=== PATIENT | male | born 1940 | race Two or more races ===

== ENCOUNTER 2022-12-25 13:10 | Inpatient (IN) | payer OTHER ==
[~2022-12-25] VITALS: Ht 180.3 cm; Wt 104.1 kg
[2022-12-25] MEDS ORDERED: NITROGLYCERIN 0.4 MG SL TAB SL PRN (16:00)
[2022-12-25] MEDS ORDERED: ALBUTEROL SULF 2.5 MG/0.5ML(0.5%) NEB SOLN NEB PRN (16:00)
[2022-12-25] MEDS ORDERED: MORPHINE SULFATE INJ 2 MG/ml SYRG IV PRN (16:00)
[2022-12-25 20:08] VITALS: BP 129/77
[2022-12-25 20:18] VITALS: BP 129/77
[2022-12-25] MEDS ORDERED: APIX5TAB PO (20:31)
[2022-12-25] MEDS ORDERED: LEVO50TA7 PO (20:31)
[2022-12-25] MEDS ORDERED: CARV6.2551 PO (20:31)
[2022-12-25] MEDS ORDERED: METF750T54 PO (20:31)
[2022-12-25] MEDS ORDERED: SIMV-13 PO (20:31)
[2022-12-25] MEDS ORDERED: FUR20T PO (20:31)
[2022-12-25 20:48] VITALS: BP 129/77
[2022-12-25] MEDS: ATORVASTATIN 20 MG TAB PO SCH (21:33)
[2022-12-25] MEDS: APIXABAN 5 MG TAB PO SCH (21:34)
[2022-12-25] MEDS: CARVEDILOL 3.125 MG TAB PO SCH (21:35)
[2022-12-25 22:00] VITALS: BP 113/70
[2022-12-25] MEDS ORDERED: APIXABAN 5 MG TAB PO SCH (22:00)
[2022-12-26] VITALS (7 sets, daily range): BP systolic 102–119; BP diastolic 58–76
[2022-12-26] MEDS ORDERED: ACETAMINOPHEN 325 MG TAB PO PRN (02:15)
[2022-12-26] MEDS ORDERED: hydrALAZINE HCL 10 MG TAB PO PRN (02:15)
[2022-12-26] MEDS ORDERED: HYDROcodone-ACET 5/325MG TAB PO PRN (02:15)
[2022-12-26] MEDS ORDERED: ONDANSETRON HCL 4 MG/2 ML VIAL IV PRN (02:15)
[2022-12-26] MEDS: FUROSEMIDE 40 MG/4 ML VIAL IV SCH ×2 (05:12→18:01)
[2022-12-26] MEDS: CARVEDILOL 3.125 MG TAB PO SCH ×2 (09:35→21:25)
[2022-12-26] MEDS: APIXABAN 5 MG TAB PO SCH ×2 (09:35→21:25)
[2022-12-26] MEDS ORDERED: LEVOTHYROXINE SODIUM 50 MCG TAB PO SCH (10:00)
[2022-12-26] MEDS ORDERED: POTASSIUM CHL 20 Meq TABLET PO ONE (15:00)
[2022-12-26] MEDS ORDERED: TAMSULOSIN HYDROCHLORIDE 0.4 MG CAP PO ONE (15:00)
[2022-12-26] MEDS ORDERED: TAMSULOSIN HYDROCHLORIDE 0.4 MG CAP PO SCH (18:00)
[2022-12-26] MEDS: ATORVASTATIN 20 MG TAB PO SCH (21:24)
[2022-12-26] MEDS: POTASSIUM CHL 20 Meq TABLET PO SCH (21:25)
[2022-12-26] MEDS: FLUTICASONE PROP NASAL SPR 0.05 % (50MCG) 16GM EACHNOSTRI SCH (21:27)
[2022-12-27 05:00] VITALS: BP 126/81
[2022-12-27] MEDS: FUROSEMIDE 40 MG/4 ML VIAL IV SCH (06:22)
[2022-12-27 06:23] LABS: Basophils # (auto) 0 10 ^3/uL (0-0.2); Basophils % (auto) 0.8 % (0.0-2.0); Eosinophils # (auto) 0.3 10 ^3/uL (0-0.8); Eosinophils % (auto) 5.7 % (0.0-7.0); Hematocrit 36.2 % (41.0-53.0); Hemoglobin 12.5 g/dL (13.5-17.5); Lymphocytes # (auto) 1.4 10 ^3/uL (0.4-5.4); Lymphocytes % (auto) 22.2 % (10.0-50.0); Mean Corpuscular Hemoglobin 30.3 pg (28.0-32.0); Mean Corpuscular Hgb Conc. 34.5 g/dL (32.0-36.0); Mean Corpuscular Volume 87.7 fL (80.0-100.0); Monocytes # (auto) 0.7 10 ^3/uL (0-1.3); Monocytes % (auto) 12.2 % (0.0-12.0); Neutrophils # (auto) 3.6 10 ^3/uL (1.6-8.6); Neutrophils % (auto) 59.1 % (37.0-80.0); Nucleated Red Blood Cells % 0.1 %; Red Blood Cells 4.13 10^6/uL (4.5-5.90); Red Cell Distribution Width 15.4 % (11.8-14.3); White Blood Cell 6.1 10^3/uL (4.4-10.8)
[2022-12-27 06:49] LABS: Potassium 3.5 mmol/L (3.5-5.1)
[2022-12-27 06:56] LABS: BUN/Creatinine Ratio 22.4 (10.0-20.0); Calcium 9.1 mg/dL (8.5-10.1)
[2022-12-27] MEDS ORDERED: LEVOTHYROXINE SODIUM 50 MCG TAB PO SCH (07:00)
[2022-12-27 08:00] VITALS: BP 103/62
[2022-12-27] MEDS: CARVEDILOL 3.125 MG TAB PO SCH (09:22)
[2022-12-27] MEDS: POTASSIUM CHL 20 Meq TABLET PO SCH (09:24)
[2022-12-27] MEDS: APIXABAN 5 MG TAB PO SCH (09:25)
[2022-12-27] MEDS: FLUTICASONE PROP NASAL SPR 0.05 % (50MCG) 16GM EACHNOSTRI SCH (09:25)
[2022-12-27 12:00] VITALS: BP 115/74
[2022-12-27] MEDS ORDERED: FURO40TA4 PO (13:32)
[2022-12-27] MEDS ORDERED: TAM04C PO (13:32)
[2022-12-27] MEDS ORDERED: POTA8TAB15 PO (13:32)
== END 2022-12-27 15:30 | disposition home or self-care (01) | DRG 291 ==
LOC: CENTRAL 19:08 → TELE-CENTR 20:00
PROVIDERS: ADMIT Hospitalist; ATTEND Hospitalist
DX: I11.0 Hypertensive heart disease with heart failure (principal); I50.33 Acute on chronic diastolic (congestive) heart failure; E11.9 Type 2 diabetes mellitus without complications; I48.91 Unspecified atrial fibrillation; N40.0 Benign prostatic hyperplasia without lower urinary tract symptoms
CPT/HCPCS: 36415; 80048; 82565; 84132; 85025; G0378

== ENCOUNTER 2023-10-26 00:41 | Inpatient (IN) | payer OTHER ==
[2023-10-26] VITALS (11 sets, daily range): BP systolic 105–126; BP diastolic 72–76; PULSE 58–104; RESP 12–33; TEMP 98–98.1; O2SAT 90–98
[~2023-10-26] VITALS: Ht 180.3 cm; Wt 110.6 kg
[~2023-10-26 00:41] MED LIST: APIX5TAB PO; CARV6.2551 PO; FURO40TA4 PO; LEVO50TA7 PO; MAGN400T40 PO; METF750T54 PO; MULT-1018 PO; MULT-688 PO; OMEGCAP2 OR; SACU1TAB4 PO; SIMV40TA18 PO; TAMS-35 PO
[2023-10-26] MEDS ORDERED: LORazepam 2MG/ML-1ML VIAL IV ONE (00:45)
[2023-10-26] MEDS ORDERED: FUROSEMIDE 40 MG/4 ML VIAL IV ONE (00:45)
[2023-10-26] MEDS ORDERED: MAGNESIUM SULFATE 1GM/100ML 100 ML IV ONE (01:00)
[2023-10-26 01:41] LABS: Basophils # (auto) 0.1 10 ^3/uL (0-0.2); Basophils % (auto) 0.8 % (0.0-2.0); Eosinophils # (auto) 0.3 10 ^3/uL (0-0.8); Eosinophils % (auto) 3.5 % (0.0-7.0); Hematocrit 41.7 % (41.0-53.0); Hemoglobin 13.7 g/dL (13.5-17.5); Lymphocytes # (auto) 1.9 10 ^3/uL (0.4-5.4); Lymphocytes % (auto) 26.4 % (10.0-50.0); Mean Corpuscular Hemoglobin 30.4 pg (28.0-32.0); Mean Corpuscular Hgb Conc. 32.8 g/dL (32.0-36.0); Mean Corpuscular Volume 92.6 fL (80.0-100.0); Monocytes # (auto) 0.5 10 ^3/uL (0-1.3); Monocytes % (auto) 6.5 % (0.0-12.0); Neutrophils # (auto) 4.5 10 ^3/uL (1.6-8.6); Neutrophils % (auto) 62.8 % (37.0-80.0); Nucleated Red Blood Cells % 0.1 %; Red Blood Cells 4.51 10^6/uL (4.5-5.90); Red Cell Distribution Width 15.6 % (11.8-14.3); White Blood Cell 7.1 10^3/uL (4.4-10.8)
[2023-10-26] MEDS ORDERED: NOREPINEPHRINE 8 MG/250ML KIT 250 ML IV ONE (01:57)
[2023-10-26 02:00] LABS: Alanine Aminotransferase 18 U/L (7-40); Albumin 4.3 g/dL (3.2-4.8); Alkaline Phosphatase 77 U/L (46-116); Anion Gap 9 (5-15); Aspartate Aminotransferase 28 U/L (13-40); BUN/Creatinine Ratio 16.2 (10.0-20.0); Bilirubin, Total 1.1 mg/dL (0.2-1.0); Blood Urea Nitrogen 19 mg/dL (9-23); Calcium 9.4 mg/dL (8.7-10.4); Carbon Dioxide 23 mmol/L (20-30); Chloride 108 mmol/L (98-107); Glucose 253 mg/dL (74-106); Sodium 140 mmol/L (136-145); Total Protein 6.9 g/dL (5.7-8.2)
[2023-10-26] MEDS ORDERED: NOREPINEPHRINE 8 MG/250ML KIT 250 ML IV SCH (02:00)
[2023-10-26 02:30] LABS: Base Excess -1.5 mmol/L (-2.0-2.0)
[2023-10-26 03:20] LABS: Urine Bacteria NONE SEEN /hpf (None Seen); Urine Blood Negative /uL (Negative); Urine Clarity Clear (Clear); Urine Hyaline Cast FEW /lpf (0 - 2); Urine Protein, UAD Negative (Negative); Urine Specific Gravity 1.013 (1.001-1.035); Urine Urobilinogen Normal (Negative); Urine WBC 1 /hpf (0 - 3); Urine pH 5.5 (5.0-8.0)
[2023-10-26 03:25] LABS: Urine Color Straw (Yellow)
[2023-10-26] MEDS ORDERED: ACETAMINOPHEN 325 MG TAB PO PRN (04:30)
[2023-10-26] MEDS ORDERED: HYDROcodone-ACET 5/325MG TAB PO PRN (04:30)
[2023-10-26] MEDS ORDERED: MORPHINE SULFATE INJ 2 MG/ml SYRG IV PRN (04:30)
[2023-10-26] MEDS ORDERED: DEXTROSE (50%) 50ML SYRG IV PRN (04:30)
[2023-10-26] MEDS ORDERED: ONDANSETRON HCL 4 MG/2 ML VIAL IV PRN (04:30)
[2023-10-26] MEDS: ACCU-CHEK COMFORT CURVE STRIP VI SCH ×4 (06:58→21:48)
[2023-10-26] MEDS: InsuLIN REG 1unit/0.01ml Soln (100units/ml) SC SCH ×4 (06:58→21:48)
[2023-10-26 09:29] LABS: COVID19 ANTIGEN SOFIA FIA NEGATIVE (NEGATIVE)
[2023-10-26] MEDS: ENOXAPARIN SOD 40 MG/0.4 ML SYRINGE SC SCH ×2 (09:46→09:54)
[2023-10-26] MEDS: levoFLOXacin 500MG 100 ML IV SCH (09:47)
[2023-10-26] MEDS ORDERED: PANTOPRAZOLE 40 MG/10 ML VIAL INJ IV SCH (10:00)
[2023-10-26 11:30] LABS: INR 1.09 (0.9-1.15); Prothrombin Time 11.4 sec (9.3-11.8)
[2023-10-26 11:47] LABS: Triglycerides 241 mg/dL (< 150)
[2023-10-26 11:48] LABS: LDL Cholesterol 83 mg/dL (< 100)
[2023-10-26 11:49] LABS: Cholesterol 166 mg/dL (< 200); HDL Cholesterol 42 mg/dL (40-59)
[2023-10-27] VITALS (13 sets, daily range): BP systolic 106–139; BP diastolic 61–90; PULSE 62–89; RESP 12–24; TEMP 97.4–98.8; O2SAT 90–100
[2023-10-27 06:30] LABS: Basophils # (auto) 0.1 10 ^3/uL (0-0.2); Basophils % (auto) 0.7 % (0.0-2.0); Eosinophils # (auto) 0.1 10 ^3/uL (0-0.8); Hematocrit 38.5 % (41.0-53.0); Hemoglobin 12.7 g/dL (13.5-17.5); Lymphocytes # (auto) 1.7 10 ^3/uL (0.4-5.4); Lymphocytes % (auto) 22.7 % (10.0-50.0); Mean Corpuscular Hemoglobin 30.1 pg (28.0-32.0); Mean Corpuscular Hgb Conc. 33.1 g/dL (32.0-36.0); Monocytes # (auto) 0.7 10 ^3/uL (0-1.3); Monocytes % (auto) 9.2 % (0.0-12.0); Neutrophils # (auto) 4.9 10 ^3/uL (1.6-8.6); Neutrophils % (auto) 65.4 % (37.0-80.0); Nucleated Red Blood Cells % 0.4 %; Red Blood Cells 4.23 10^6/uL (4.5-5.90); Red Cell Distribution Width 15.8 % (11.8-14.3); White Blood Cell 7.5 10^3/uL (4.4-10.8)
[2023-10-27 06:33] LABS: Chloride 111 mmol/L (98-107); Potassium 3.4 mmol/L (3.5-5.1); Sodium 143 mmol/L (136-145)
[2023-10-27 06:34] LABS: Anion Gap 7 (5-15); Calcium 9.2 mg/dL (8.5-10.1); Carbon Dioxide 25 mmol/L (20-30)
[2023-10-27 06:39] LABS: BUN/Creatinine Ratio 17.8 (10.0-20.0); Blood Urea Nitrogen 19 mg/dL (9-23)
[2023-10-27 06:45] LABS: Glucose 133 mg/dL (74-106)
[2023-10-27] MEDS: InsuLIN REG 1unit/0.01ml Soln (100units/ml) SC SCH ×4 (06:50→22:00)
[2023-10-27] MEDS: ACCU-CHEK COMFORT CURVE STRIP VI SCH ×4 (06:50→22:06)
[2023-10-27] MEDS ORDERED: IODIXANOL 320MG/ML 100ML BTL IV ONE (09:32)
[2023-10-27] MEDS ORDERED: LIDOCAINE 2%HCL (LOCAL ANESTH.) INJ 20ML MDV ONE (09:32)
[2023-10-27] MEDS ORDERED: HEPARIN SODIUM (PORCINE) 5000 UNITS/ML 1ML VIAL ONE (09:41)
[2023-10-27] MEDS ORDERED: MIDAZOLAM HCL 2MG/2ML 2ml VIAL (1mg/ml) ONE (09:41)
[2023-10-27] MEDS ORDERED: fentaNYL CITRATE 100 MCG/2 ML VL ONE (09:41)
[2023-10-27] MEDS ORDERED: VERAPAMIL 2.5MG/ML INJ 2ML VIAL IV ONE (09:41)
[2023-10-27] MEDS ORDERED: ANGIOMAX 250 MG VIAL IV ONE (09:41)
[2023-10-27] MEDS ORDERED: SODIUM CHL 0.9% 50 ML ONE (09:42)
[2023-10-27] MEDS ORDERED: TICAGRELOR 90 MG TAB ONE (10:38)
[2023-10-27] MEDS ORDERED: ATROPINE SULF 1 MG/10ml SYR ONE (10:40)
[2023-10-27] MEDS ORDERED: ASPirin 81 mg TAB ONE (10:41)
[2023-10-27] MEDS: levoFLOXacin 500MG 100 ML IV SCH (12:38)
[2023-10-27] MEDS: ENOXAPARIN SOD 40 MG/0.4 ML SYRINGE SC SCH (12:38)
[2023-10-27] MEDS ORDERED: LORazepam 2MG/ML-1ML VIAL IV ONE (13:45)
[2023-10-27] MEDS: LORazepam 0.5 MG TAB PO PRN (17:00)
[2023-10-27] MEDS ORDERED: CLOPIDOGREL 300 MG TAB PO ONE (20:00)
[2023-10-27] MEDS ORDERED: TEMAZEPAM 15 MG CAP PO PRN (22:00)
[2023-10-28 05:00] VITALS: BP 99/57; PULSE 71; RESP 20; TEMP 98.9; O2SAT 95
[2023-10-28] MEDS: LORazepam 0.5 MG TAB PO PRN (05:02)
[2023-10-28] MEDS: ACCU-CHEK COMFORT CURVE STRIP VI SCH ×2 (06:20→11:30)
[2023-10-28] MEDS: InsuLIN REG 1unit/0.01ml Soln (100units/ml) SC SCH ×2 (06:21→11:30)
[2023-10-28 06:46] LABS: Chloride 110 mmol/L (98-107); Potassium 3.5 mmol/L (3.5-5.1); Sodium 142 mmol/L (136-145)
[2023-10-28 06:47] LABS: Anion Gap 9 (5-15); Calcium 9.1 mg/dL (8.5-10.1); Carbon Dioxide 23 mmol/L (20-30)
[2023-10-28 06:52] LABS: BUN/Creatinine Ratio 16.2 (10.0-20.0); Blood Urea Nitrogen 16 mg/dL (9-23); Glucose 133 mg/dL (74-106)
[2023-10-28 08:00] VITALS: PULSE 75; PULSE 77; RESP 16; O2SAT 96
[2023-10-28 09:00] VITALS: BP 113/68; PULSE 75; RESP 16; TEMP 98.3; O2SAT 96
[2023-10-28] MEDS: levoFLOXacin 500MG 100 ML IV SCH (09:50)
[2023-10-28] MEDS: ENOXAPARIN SOD 40 MG/0.4 ML SYRINGE SC SCH (09:51)
[2023-10-28] MEDS ORDERED: CLOPIDOGREL BISULFATE 75 MG TAB PO SCH (10:00)
[2023-10-28] MEDS ORDERED: ASPirin 81 mg TAB PO SCH (11:45)
[2023-10-28] MEDS ORDERED: CLOP75TA70 PO (12:22)
[2023-10-28] MEDS ORDERED: SIMV40TA18 PO (12:22)
[2023-10-28] MEDS ORDERED: ASPI81TA28 PO (12:23)
[2023-10-28 13:00] VITALS: BP 113/79; PULSE 68; RESP 16; TEMP 97.9; O2SAT 94
[2023-10-28 16:14] VITALS: BP 113/68; PULSE 75; RESP 16; TEMP 98.3; O2SAT 96
[2023-10-29] MEDS ORDERED: levoFLOXacin 500 MG TAB PO SCH (10:00)
== END 2023-10-28 16:30 | disposition home or self-care (01) | DRG 323 ==
LOC: ER 00:41 → EDBD 00:41 → TELE 04:31 → TELE-CENTR 18:31
PROVIDERS: ADMIT Nurse Practitioner Family; ATTEND Hospitalist
PROC: 5A09357 Assistance with Respiratory Ventilation, Less than 24 Consecutive Hours, Continuous Positive Airway Pressure (ICD-10-PCS; 2023-10-26)
PROC: 027034Z Dilation of Coronary Artery, One Artery with Drug-eluting Intraluminal Device, Percutaneous Approach (ICD-10-PCS; principal; 2023-10-27)
PROC: 02F03ZZ Fragmentation in Coronary Artery, One Artery, Percutaneous Approach (ICD-10-PCS; 2023-10-27)
PROC: B211YZZ Fluoroscopy of Multiple Coronary Arteries using Other Contrast (ICD-10-PCS; 2023-10-27)
PROC: B215YZZ Fluoroscopy of Left Heart using Other Contrast (ICD-10-PCS; 2023-10-27)
PROC: 4A023N7 Measurement of Cardiac Sampling and Pressure, Left Heart, Percutaneous Approach (ICD-10-PCS; 2023-10-27)
DX: I25.119 Atherosclerotic heart disease of native coronary artery with unspecified angina pectoris (principal); I50.43 Acute on chronic combined systolic (congestive) and diastolic (congestive) heart failure; J96.01 Acute respiratory failure with hypoxia; I24.9 Acute ischemic heart disease, unspecified; I11.0 Hypertensive heart disease with heart failure; Z20.822 Contact with and (suspected) exposure to COVID-19; E11.9 Type 2 diabetes mellitus without complications; E66.01 Morbid (severe) obesity due to excess calories; I25.10 Atherosclerotic heart disease of native coronary artery without angina pectoris; I95.9 Hypotension, unspecified; I48.0 Paroxysmal atrial fibrillation; Z79.01 Long term (current) use of anticoagulants; Z68.33 Body mass index [BMI] 33.0-33.9, adult; Z79.899 Other long term (current) drug therapy; Z79.84 Long term (current) use of oral hypoglycemic drugs; Z95.5 Presence of coronary angioplasty implant and graft
CPT/HCPCS: 36415; 36600; 71045; 80048; 80053; 80061; 81001; 82805; 82962; 83036; 83880; 84443; 84484; 85025; 85379; 85610; 86850; 86900; 86901; 87040; 87426; 92928; 93005; 93306; 93458; 93970; 94660; 99152; 99153; 99291; C1874; C9113; G0378; J1815; J1956; J2250; Q9967

== ENCOUNTER 2024-03-15 02:48 | Inpatient (IN) | payer OTHER ==
[~2024-03-15] VITALS: Ht 180.3 cm; Wt 104.6 kg
[~2024-03-15 02:48] MED LIST changes: -APIX5TAB PO; +ASPI81TA28 PO; +CLOP75TA70 PO; -OMEGCAP2 OR
[2024-03-15 03:06] LABS: Basophils # (auto) 0 10 ^3/uL (0-0.2); Basophils % (auto) 0.7 % (0.0-2.0); Eosinophils # (auto) 0.1 10 ^3/uL (0-0.8); Eosinophils % (auto) 2.1 % (0.0-7.0); Hematocrit 34.5 % (41.0-53.0); Hemoglobin 11.6 g/dL (13.5-17.5); Lymphocytes # (auto) 1.2 10 ^3/uL (0.4-5.4); Lymphocytes % (auto) 16.7 % (10.0-50.0); Mean Corpuscular Hemoglobin 30.1 pg (28.0-32.0); Mean Corpuscular Hgb Conc. 33.6 g/dL (32.0-36.0); Mean Corpuscular Volume 89.8 fL (80.0-100.0); Monocytes # (auto) 0.5 10 ^3/uL (0-1.3); Monocytes % (auto) 7.4 % (0.0-12.0); Neutrophils # (auto) 5.2 10 ^3/uL (1.6-8.6); Neutrophils % (auto) 73.1 % (37.0-80.0); Red Blood Cells 3.85 10^6/uL (4.5-5.90); Red Cell Distribution Width 15.9 % (11.8-14.3)
[2024-03-15 03:16] LABS: Chloride 105 mmol/L (98-107); Potassium 3.4 mmol/L (3.5-5.1); Sodium 138 mmol/L (136-145)
[2024-03-15 03:17] LABS: Anion Gap 8 (5-15); Calcium 9.7 mg/dL (8.7-10.4); Carbon Dioxide 25 mmol/L (20-30)
[2024-03-15 03:22] LABS: BUN/Creatinine Ratio 17.2 (10.0-20.0); Blood Urea Nitrogen 21 mg/dL (9-23); Glucose 189 mg/dL (74-106)
[2024-03-15 03:42] VITALS: PULSE 89; RESP 22; O2SAT 96
[2024-03-15] MEDS: FUROSEMIDE 100 MG/10ML VIAL IV ONE (03:56)
[2024-03-15] MEDS ORDERED: ONDANSETRON HCL 4 MG/2 ML VIAL IV PRN (04:15)
[2024-03-15] MEDS ORDERED: ACETAMINOPHEN 325 MG TAB PO PRN (04:15)
[2024-03-15 04:45] LABS: INR 1.19 (0.9-1.15); Prothrombin Time 12.5 sec (9.3-11.8)
[2024-03-15 04:52] LABS: Urine Bacteria None Seen /hpf (None Seen)
[2024-03-15 05:02] LABS: Urine Blood Negative /uL (Negative); Urine Clarity Clear (Clear); Urine Color Light-Yellow (Yellow); Urine Mucus FEW (None Seen); Urine Protein, UAD Negative (Negative); Urine Specific Gravity 1.008 (1.001-1.035); Urine Urobilinogen Normal (Negative); Urine WBC 1 /hpf (0 - 3)
[2024-03-15] MEDS ORDERED: NITROGLYCERIN 0.4 MG SL TAB SL PRN (05:45)
[2024-03-15] MEDS ORDERED: MORPHINE SULFATE INJ 2 MG/ml SYRG IV PRN (05:45)
[2024-03-15] MEDS: ENOXAPARIN SOD 100 MG/1 ML SYRINGE SC ONE (06:54)
[2024-03-15 08:00] VITALS: PULSE 81; RESP 25; O2SAT 94
[2024-03-15] MEDS: PANTOPRAZOLE 40 MG/10 ML VIAL INJ IV SCH (10:19)
[2024-03-15] MEDS: levoFLOXacin 500MG 100 ML IV SCH (10:19)
[2024-03-15] MEDS: FUROSEMIDE 40 MG/4 ML VIAL IV SCH (10:20)
[2024-03-15 11:30] VITALS: RESP 20
[2024-03-15 13:00] VITALS: BP 102/69; PULSE 52; RESP 17; TEMP 97.7; O2SAT 98
[2024-03-15 17:00] VITALS: BP 97/67; PULSE 72; RESP 20; TEMP 98.2; O2SAT 90
[2024-03-15] MEDS ORDERED: MID10T GT (17:38)
[2024-03-15] MEDS: MIDODRINE HCL 10 MG TAB PO SCH (17:49)
[2024-03-15] MEDS: TAMSULOSIN HYDROCHLORIDE 0.4 MG CAP PO SCH (17:50)
[2024-03-15] MEDS: POTASSIUM CHL 20 Meq TABLET PO ONE (17:50)
[2024-03-15 20:00] VITALS: PULSE 85; RESP 16
[2024-03-15] MEDS: DOXYCYCLINE 100 MG TAB/CAP PO SCH (21:53)
[2024-03-16 05:00] VITALS: BP 110/71; PULSE 64; RESP 17; TEMP 97.4; O2SAT 92
[2024-03-16] MEDS: LEVOTHYROXINE SODIUM 50 MCG TAB PO SCH (05:55)
[2024-03-16 06:58] LABS: Chloride 106 mmol/L (98-107); Potassium 3.2 mmol/L (3.5-5.1); Sodium 140 mmol/L (136-145)
[2024-03-16 06:59] LABS: Anion Gap 9 (5-15); Carbon Dioxide 25 mmol/L (20-30)
[2024-03-16 07:00] LABS: Calcium 9.6 mg/dL (8.7-10.4)
[2024-03-16 07:04] LABS: BUN/Creatinine Ratio 16.4 (10.0-20.0); Blood Urea Nitrogen 20 mg/dL (9-23); Glucose 138 mg/dL (74-106)
[2024-03-16 08:05] VITALS: PULSE 93; RESP 18
[2024-03-16] MEDS: MULTIPLE VITAMIN TAB PO SCH (08:16)
[2024-03-16] MEDS: POTASSIUM CHL 10 Meq TABLET PO SCH (08:17)
[2024-03-16] MEDS: CLOPIDOGREL BISULFATE 75 MG TAB PO SCH (08:17)
[2024-03-16] MEDS: ASPirin-EC 81 mg tab PO SCH (08:23)
[2024-03-16] MEDS: FUROSEMIDE 40 MG TAB PO SCH (08:23)
[2024-03-16 13:00] VITALS: BP 105/68; PULSE 78; RESP 18; TEMP 98; O2SAT 96
[2024-03-16 15:45] VITALS: BP 116/85
== END 2024-03-16 17:00 | disposition home or self-care (01) | DRG 291 ==
LOC: EDBD 02:48 → ER 02:48 → TELE 05:46 → TELE-CENTR 11:17
PROVIDERS: ADMIT Nurse Practitioner Family; ATTEND Nurse Practitioner Family
DX: I11.0 Hypertensive heart disease with heart failure (principal); I50.33 Acute on chronic diastolic (congestive) heart failure; J96.00 Acute respiratory failure, unspecified whether with hypoxia or hypercapnia; R42 Dizziness and giddiness; E11.9 Type 2 diabetes mellitus without complications; I25.10 Atherosclerotic heart disease of native coronary artery without angina pectoris; I48.91 Unspecified atrial fibrillation; I42.9 Cardiomyopathy, unspecified; Z88.5 Allergy status to narcotic agent; Z95.5 Presence of coronary angioplasty implant and graft; Z79.84 Long term (current) use of oral hypoglycemic drugs; I95.9 Hypotension, unspecified
CPT/HCPCS: 36415; 70450; 71045; 80048; 81001; 83880; 84484; 85025; 85610; 87081; 93005; 96372; 96374; 96375; 96376; 99291; C9113; G0378; J1956

== ENCOUNTER 2024-03-17 19:30 | Inpatient (IN) | payer OTHER ==
[~2024-03-17] VITALS: Ht 180.3 cm; Wt 100.0 kg
[~2024-03-17 19:30] MED LIST changes: -CARV6.2551 PO; +MID10T GT; -SACU1TAB4 PO
[2024-03-17 20:42] LABS: Basophils # (auto) 0.1 10 ^3/uL (0-0.2); Eosinophils # (auto) 0.3 10 ^3/uL (0-0.8); Eosinophils % (auto) 4.2 % (0.0-7.0); Hematocrit 37.1 % (41.0-53.0); Hemoglobin 12.3 g/dL (13.5-17.5); Lymphocytes # (auto) 1.4 10 ^3/uL (0.4-5.4); Lymphocytes % (auto) 20.2 % (10.0-50.0); Mean Corpuscular Hemoglobin 29.7 pg (28.0-32.0); Mean Corpuscular Hgb Conc. 33.2 g/dL (32.0-36.0); Mean Corpuscular Volume 89.5 fL (80.0-100.0); Monocytes # (auto) 0.7 10 ^3/uL (0-1.3); Monocytes % (auto) 10.5 % (0.0-12.0); Neutrophils # (auto) 4.5 10 ^3/uL (1.6-8.6); Neutrophils % (auto) 64.1 % (37.0-80.0); Nucleated Red Blood Cells % 0.3 %; Red Blood Cells 4.15 10^6/uL (4.5-5.90); Red Cell Distribution Width 15.8 % (11.8-14.3)
[2024-03-17 20:57] LABS: Alanine Aminotransferase 13 U/L (7-40); Albumin 4.2 g/dL (3.2-4.8); Alkaline Phosphatase 98 U/L (46-116); Anion Gap 9 (5-15); Aspartate Aminotransferase 16 U/L (13-40); BUN/Creatinine Ratio 21.3 (10.0-20.0); Calcium 9.6 mg/dL (8.5-10.1); Carbon Dioxide 27 mmol/L (20-30); Chloride 107 mmol/L (98-107); Glucose 123 mg/dL (74-106); Potassium 3.9 mmol/L (3.5-5.1); Sodium 143 mmol/L (136-145)
[2024-03-17 20:58] LABS: Bilirubin, Total 1.3 mg/dL (0.2-1.0); Total Protein 6.7 g/dL (5.7-8.2)
[2024-03-17 20:59] LABS: Blood Urea Nitrogen 30 mg/dL (9-23)
[2024-03-17] MEDS: FUROSEMIDE 40 MG/4 ML VIAL IV ONE (23:09)
[2024-03-18] VITALS (7 sets, daily range): BP systolic 109–119; BP diastolic 64–85; PULSE 64–82; RESP 16–21; TEMP 97.3–98.1; O2SAT 94–98
[2024-03-18] MEDS ORDERED: ACETAMINOPHEN 325 MG TAB PO PRN (00:30)
[2024-03-18] MEDS ORDERED: NITROGLYCERIN 0.4 MG SL TAB SL PRN (00:30)
[2024-03-18] MEDS ORDERED: HYDROcodone-ACET 5/325MG TAB PO PRN (00:30)
[2024-03-18] MEDS ORDERED: ONDANSETRON HCL 4 MG/2 ML VIAL IV PRN (00:30)
[2024-03-18] MEDS ORDERED: DOCUSATE SOD 100 MG CAP PO PRN (00:30)
[2024-03-18] MEDS ORDERED: MORPHINE SULFATE INJ 2 MG/ml SYRG IV PRN (00:30)
[2024-03-18 01:43] LABS: Urine Bacteria None Seen /hpf (None Seen)
[2024-03-18 01:56] LABS: Urine Blood Negative /uL (Negative); Urine Clarity Clear (Clear); Urine Color Light-Yellow (Yellow); Urine Mucus FEW (None Seen); Urine Protein, UAD Negative (Negative); Urine Urobilinogen Normal (Negative); Urine WBC <1 /hpf (0 - 3); Urine pH 6.5 (5.0-9.0)
[2024-03-18] MEDS ORDERED: MULT-688 PO (04:56)
[2024-03-18] MEDS: MIDODRINE HCL 10 MG TAB PO SCH (05:02)
[2024-03-18] MEDS: FUROSEMIDE 20 MG/2 ML VIAL IV SCH (10:38)
[2024-03-18 11:07] LABS: Basophils # (auto) 0.1 10 ^3/uL (0-0.2); Basophils % (auto) 0.8 % (0.0-2.0); Eosinophils # (auto) 0.3 10 ^3/uL (0-0.8); Eosinophils % (auto) 4.7 % (0.0-7.0); Hematocrit 37.1 % (41.0-53.0); Hemoglobin 12.1 g/dL (13.5-17.5); Lymphocytes # (auto) 1.7 10 ^3/uL (0.4-5.4); Lymphocytes % (auto) 23.4 % (10.0-50.0); Mean Corpuscular Hemoglobin 29.4 pg (28.0-32.0); Mean Corpuscular Hgb Conc. 32.6 g/dL (32.0-36.0); Mean Corpuscular Volume 90.1 fL (80.0-100.0); Monocytes # (auto) 0.7 10 ^3/uL (0-1.3); Monocytes % (auto) 9.4 % (0.0-12.0); Neutrophils # (auto) 4.5 10 ^3/uL (1.6-8.6); Neutrophils % (auto) 61.7 % (37.0-80.0); Nucleated Red Blood Cells % 0.3 %; Red Blood Cells 4.12 10^6/uL (4.5-5.90); Red Cell Distribution Width 15.9 % (11.8-14.3); White Blood Cell 7.3 10^3/uL (4.4-10.8)
[2024-03-18 11:26] LABS: Chloride 106 mmol/L (98-107); Potassium 3.6 mmol/L (3.5-5.1); Sodium 142 mmol/L (136-145)
[2024-03-18 11:27] LABS: Anion Gap 9 (5-15); Carbon Dioxide 27 mmol/L (20-30)
[2024-03-18 11:28] LABS: Calcium 9.3 mg/dL (8.5-10.1)
[2024-03-18 11:32] LABS: BUN/Creatinine Ratio 22.2 (10.0-20.0); Blood Urea Nitrogen 30 mg/dL (9-23); Glucose 147 mg/dL (74-106)
== END 2024-03-18 17:10 | disposition home health service (06) | DRG 291 ==
LOC: ER 19:30 → TELE 03-18 00:39 → TELE-EAST 03-18 04:00 → OBSVTOIN 03-18 11:12
PROVIDERS: ADMIT Nurse Practitioner Family; ATTEND Internal Medicine
DX: I13.0 Hypertensive heart and chronic kidney disease with heart failure and stage 1 through stage 4 chronic kidney disease, or unspecified chronic kidney disease (principal); I50.23 Acute on chronic systolic (congestive) heart failure; J96.21 Acute and chronic respiratory failure with hypoxia; N17.9 Acute kidney failure, unspecified; I48.20 Chronic atrial fibrillation, unspecified; I42.9 Cardiomyopathy, unspecified; D64.9 Anemia, unspecified; E03.9 Hypothyroidism, unspecified; E78.5 Hyperlipidemia, unspecified; E11.22 Type 2 diabetes mellitus with diabetic chronic kidney disease; N18.9 Chronic kidney disease, unspecified; N40.0 Benign prostatic hyperplasia without lower urinary tract symptoms; I25.10 Atherosclerotic heart disease of native coronary artery without angina pectoris; Z88.5 Allergy status to narcotic agent; Z95.5 Presence of coronary angioplasty implant and graft; Z88.8 Allergy status to other drugs, medicaments and biological substances; Z79.01 Long term (current) use of anticoagulants
CPT/HCPCS: 36415; 71045; 80048; 80053; 81001; 83880; 84484; 85025; 87081; 93005; 96374; G0378

== ENCOUNTER 2024-03-24 01:32 | Inpatient (IN) | payer OTHER ==
[~2024-03-24] VITALS: Ht 172.7 cm; Wt 100.0 kg
[~2024-03-24 01:32] MED LIST changes: -MID10T GT; +MID10T PO
[2024-03-24 02:17] LABS: Basophils # (auto) 0.1 10 ^3/uL (0-0.2); Basophils % (auto) 1.1 % (0.0-2.0); Eosinophils # (auto) 0.1 10 ^3/uL (0-0.8); Eosinophils % (auto) 1.8 % (0.0-7.0); Hematocrit 37.5 % (41.0-53.0); Lymphocytes # (auto) 1.1 10 ^3/uL (0.4-5.4); Lymphocytes % (auto) 15.9 % (10.0-50.0); Mean Corpuscular Hemoglobin 28.5 pg (28.0-32.0); Mean Corpuscular Hgb Conc. 31.9 g/dL (32.0-36.0); Mean Corpuscular Volume 89.5 fL (80.0-100.0); Monocytes # (auto) 0.6 10 ^3/uL (0-1.3); Monocytes % (auto) 8.5 % (0.0-12.0); Neutrophils # (auto) 5.1 10 ^3/uL (1.6-8.6); Neutrophils % (auto) 72.7 % (37.0-80.0); Nucleated Red Blood Cells % 0.6 %; Platelet Count (auto) 340 10^3/uL (140-450); Red Blood Cells 4.19 10^6/uL (4.5-5.90); Red Cell Distribution Width 16.7 % (11.8-14.3)
[2024-03-24 02:54] LABS: Chloride 106 mmol/L (98-107); Potassium 3.3 mmol/L (3.5-5.1); Sodium 143 mmol/L (136-145)
[2024-03-24 02:55] LABS: Anion Gap 11 (5-15); Carbon Dioxide 26 mmol/L (20-30)
[2024-03-24 02:56] LABS: Calcium 9.6 mg/dL (8.7-10.4)
[2024-03-24 03:00] LABS: BUN/Creatinine Ratio 18.2 (10.0-20.0); Blood Urea Nitrogen 27 mg/dL (9-23); Glucose 169 mg/dL (74-106)
[2024-03-24 03:16] VITALS: PULSE 86; RESP 33; O2SAT 98
[2024-03-24] MEDS: FUROSEMIDE 40 MG/4 ML VIAL IV ONE (04:41)
[2024-03-24] MEDS ORDERED: NITROGLYCERIN 0.4 MG SL TAB SL PRN (06:00)
[2024-03-24] MEDS ORDERED: ONDANSETRON HCL 4 MG/2 ML VIAL IV PRN (06:00)
[2024-03-24] MEDS ORDERED: ACETAMINOPHEN 325 MG TAB PO PRN (06:00)
[2024-03-24] MEDS ORDERED: DOCUSATE SOD 100 MG CAP PO PRN (06:00)
[2024-03-24] MEDS ORDERED: MORPHINE SULFATE INJ 2 MG/ml SYRG IV PRN ×2 (06:00→06:15)
[2024-03-24] MEDS ORDERED: DEXTROSE (50%) 50ML SYRG IV PRN (06:15)
[2024-03-24] MEDS: POTASSIUM CHL 20 Meq TABLET PO ONE (06:31)
[2024-03-24] MEDS: InsuLIN REG 1unit/0.01ml Soln (100units/ml) SC SCH (06:38)
[2024-03-24] MEDS: ACCU-CHEK COMFORT CURVE STRIP VI SCH (06:40)
[2024-03-24 07:30] VITALS: PULSE 99; RESP 19; O2SAT 6
[2024-03-24] MEDS ORDERED: FUROSEMIDE 40 MG/4 ML VIAL IV SCH (10:00)
[2024-03-24] MEDS: MIDODRINE HCL 10 MG TAB PO SCH (12:08)
[2024-03-24] MEDS: ASPirin 81 mg TAB PO SCH (12:09)
[2024-03-24] MEDS: CLOPIDOGREL BISULFATE 75 MG TAB PO SCH (12:09)
[2024-03-24] MEDS: FUROSEMIDE 40 MG TAB PO ONE (12:13)
[2024-03-24 13:06] VITALS: BP 102/76; PULSE 80; RESP 19; TEMP 97.4; O2SAT 98
== END 2024-03-25 13:27 | disposition home or self-care (01) | DRG 291 ==
LOC: EDBD 01:32 → ER 01:32 → TELE 06:07 → UNDODEPER 12:53
PROVIDERS: ADMIT Nurse Practitioner Family; ATTEND Nurse Practitioner Family
DX: I11.0 Hypertensive heart disease with heart failure (principal); I50.23 Acute on chronic systolic (congestive) heart failure; I48.20 Chronic atrial fibrillation, unspecified; I42.9 Cardiomyopathy, unspecified; I25.10 Atherosclerotic heart disease of native coronary artery without angina pectoris; E11.9 Type 2 diabetes mellitus without complications; N40.0 Benign prostatic hyperplasia without lower urinary tract symptoms; Z99.81 Dependence on supplemental oxygen; Z79.899 Other long term (current) drug therapy; Z88.8 Allergy status to other drugs, medicaments and biological substances; Z98.61 Coronary angioplasty status; Z79.01 Long term (current) use of anticoagulants
CPT/HCPCS: 36415; 71045; 80048; 82962; 83880; 84484; 85025; 93005; 96374; 99291; G0378; J1815

== ENCOUNTER 2024-03-30 13:39 | Inpatient (IN) | payer OTHER ==
[~2024-03-30] VITALS: Ht 177.8 cm; Wt 99.4 kg
[2024-03-30] MEDS: ROCURONIUM 10MG/ML 10ML VIAL IV ONE ×2 (13:57→13:58)
[2024-03-30] MEDS: MIDAZOLAM HCL 5 MG/ML-1ML VIAL ONE (13:57)
[2024-03-30] MEDS: ETOMIDATE (2MG/ML) 20ML VIAL IV ONE ×2 (13:57)
[2024-03-30] MEDS ORDERED: fentaNYL Drip 2500mCg/250mlNS 250 ML IV SCH (14:00)
[2024-03-30] MEDS ORDERED: MIDAZOLAM DRIP 50 mg/50mL 50 ML IV SCH (14:00)
[2024-03-30] MEDS: FUROSEMIDE 40 MG/4 ML VIAL IV ONE (14:00)
[2024-03-30] MEDS: MIDAZOLAM DRIP 50 mg/50mL 50 ML IV SCH ×2 (14:45→14:59)
[2024-03-30] MEDS: fentaNYL Drip 2500mCg/250mlNS 250 ML IV SCH (14:45)
[2024-03-30 15:08] LABS: Basophils # (auto) 0.1 10 ^3/uL (0-0.2); Basophils % (auto) 0.7 % (0.0-2.0); Eosinophils # (auto) 0 10 ^3/uL (0-0.8); Eosinophils % (auto) 0.3 % (0.0-7.0); Hematocrit 39.2 % (41.0-53.0); Hemoglobin 12.9 g/dL (13.5-17.5); Lymphocytes # (auto) 1.8 10 ^3/uL (0.4-5.4); Lymphocytes % (auto) 18.9 % (10.0-50.0); Mean Corpuscular Hemoglobin 29.4 pg (28.0-32.0); Mean Corpuscular Volume 89.1 fL (80.0-100.0); Monocytes # (auto) 0.7 10 ^3/uL (0-1.3); Monocytes % (auto) 6.8 % (0.0-12.0); Neutrophils % (auto) 73.3 % (37.0-80.0); Nucleated Red Blood Cells % 0.4 %; White Blood Cell 9.6 10^3/uL (4.4-10.8)
[2024-03-30] MEDS: fentaNYL Drip 2500mCg/250mlNS 250 ML IV ONE (15:13)
[2024-03-30] MEDS: MIDAZOLAM DRIP 50 mg/50mL 50 ML IV ONE (15:13)
[2024-03-30 15:26] LABS: Alanine Aminotransferase 11 U/L (7-40); Albumin 3.9 g/dL (3.2-4.8); Alkaline Phosphatase 187 U/L (46-116); Anion Gap 13 (5-15); Aspartate Aminotransferase 15 U/L (13-40); BUN/Creatinine Ratio 17.1 (10.0-20.0); Bilirubin, Total 2.4 mg/dL (0.2-1.0); Blood Urea Nitrogen 25 mg/dL (9-23); Calcium 9.8 mg/dL (8.5-10.1); Carbon Dioxide 24 mmol/L (20-30); Chloride 104 mmol/L (98-107); Glucose 157 mg/dL (74-106); Potassium 3.5 mmol/L (3.5-5.1); Sodium 141 mmol/L (136-145); Total Protein 6.3 g/dL (5.7-8.2)
[2024-03-30 15:32] VITALS: RESP 17; O2SAT 93
[2024-03-30] MEDS: dilTIAZem 125mg/125ml BAG KIT 125 ML IV ONE (17:18)
[2024-03-30] MEDS: PROPOFOL 100 ML IV SCH (17:30)
[2024-03-30] MEDS ORDERED: NITROGLYCERIN 0.4 MG SL TAB SL PRN (17:45)
[2024-03-30] MEDS ORDERED: MORPHINE SULFATE INJ 2 MG/ml SYRG IV PRN (17:45)
[2024-03-30] MEDS ORDERED: ONDANSETRON HCL 4 MG/2 ML VIAL IV PRN (17:45)
[2024-03-30] MEDS: FUROSEMIDE 40 MG/4 ML VIAL IV SCH (18:05)
[2024-03-30 18:40] VITALS: BP 118/99; PULSE 117; RESP 32; O2SAT 97
[2024-03-30] MEDS: NOREPINEPHRINE 8 MG/250ML KIT 250 ML IV ONE (19:07)
[2024-03-30] MEDS: NOREPINEPHRINE 8 MG/250ML KIT 250 ML IV SCH (19:16)
[2024-03-30 19:30] VITALS: PULSE 105; RESP 22; O2SAT 98
[2024-03-30 20:05] VITALS: BP 87/60; PULSE 97; RESP 22; O2SAT 98
[2024-03-30 20:47] LABS: Base Excess 1.3 mmol/L (-2.0-2.0)
[2024-03-30 21:15] VITALS: BP 93/67; PULSE 122; RESP 27; O2SAT 97
[2024-03-30 22:25] VITALS: BP 129/77; PULSE 117; RESP 22; O2SAT 97
[2024-03-31] VITALS (91 sets, daily range): BP systolic 69–135; BP diastolic 43–89; PULSE 71–131; RESP 16–35; TEMP 96.4–99.7; O2SAT 92–99
[2024-03-31] MEDS: dilTIAZem 125mg/125ml BAG KIT 100 ML IV ONE (03:00)
[2024-03-31] MEDS: dilTIAZem 125mg/125ml BAG KIT 125 ML IV ONE (03:13)
[2024-03-31 03:51] LABS: Basophils # (auto) 0 10 ^3/uL (0-0.2); Basophils % (auto) 0.5 % (0.0-2.0); Eosinophils # (auto) 0 10 ^3/uL (0-0.8); Eosinophils % (auto) 0.3 % (0.0-7.0); Hematocrit 36.5 % (41.0-53.0); Lymphocytes # (auto) 1.3 10 ^3/uL (0.4-5.4); Lymphocytes % (auto) 13.6 % (10.0-50.0); Mean Corpuscular Hemoglobin 29.2 pg (28.0-32.0); Mean Corpuscular Hgb Conc. 32.8 g/dL (32.0-36.0); Mean Corpuscular Volume 89.2 fL (80.0-100.0); Monocytes # (auto) 0.8 10 ^3/uL (0-1.3); Monocytes % (auto) 8.6 % (0.0-12.0); Neutrophils # (auto) 7.3 10 ^3/uL (1.6-8.6); Nucleated Red Blood Cells % 0.5 %; Red Blood Cells 4.09 10^6/uL (4.5-5.90); White Blood Cell 9.4 10^3/uL (4.4-10.8)
[2024-03-31 04:06] LABS: Alanine Aminotransferase 11 U/L (7-40); Albumin 3.4 g/dL (3.2-4.8); Alkaline Phosphatase 170 U/L (46-116); Anion Gap 10 (5-15); Aspartate Aminotransferase 21 U/L (13-40); BUN/Creatinine Ratio 18.7 (10.0-20.0); Blood Urea Nitrogen 29 mg/dL (9-23); Calcium 9.2 mg/dL (8.7-10.4); Carbon Dioxide 28 mmol/L (20-30); Chloride 106 mmol/L (98-107); Glucose 153 mg/dL (74-106); Potassium 3.1 mmol/L (3.5-5.1); Sodium 144 mmol/L (136-145)
[2024-03-31 04:07] LABS: Bilirubin, Total 1.9 mg/dL (0.2-1.0); Total Protein 5.6 g/dL (5.7-8.2)
[2024-03-31 07:14] LABS: Base Excess 2.7 mmol/L (-2.0-2.0)
[2024-03-31] MEDS ORDERED: APIX5TAB PO (07:49)
[2024-03-31] MEDS: POTASSIUM CHL 20MEQ/100ML 100 ML IV SCH (08:42)
[2024-03-31] MEDS: dilTIAZem 125mg/125ml BAG KIT 125 ML IV SCH (10:30)
[2024-03-31] MEDS: PROPOFOL 100 ML IV SCH (16:53)
[2024-04-01] VITALS (115 sets, daily range): BP systolic 87–119; BP diastolic 58–81; PULSE 84–136; RESP 11–38; TEMP 97–99; O2SAT 93–100
[2024-04-01 02:40] LABS: Alanine Aminotransferase 11 U/L (7-40); Albumin 3.4 g/dL (3.2-4.8); Alkaline Phosphatase 167 U/L (46-116); Anion Gap 10 (5-15); Aspartate Aminotransferase 21 U/L (13-40); BUN/Creatinine Ratio 16.5 (10.0-20.0); Bilirubin, Total 1.7 mg/dL (0.2-1.0); Blood Urea Nitrogen 21 mg/dL (9-23); Calcium 8.9 mg/dL (8.7-10.4); Carbon Dioxide 28 mmol/L (20-30); Chloride 108 mmol/L (98-107); Glucose 167 mg/dL (74-106); Magnesium 2.1 mg/dL (1.6-2.6); Potassium 3.1 mmol/L (3.5-5.1); Sodium 146 mmol/L (136-145); Total Protein 5.7 g/dL (5.7-8.2)
[2024-04-01 03:04] LABS: Basophils # (auto) 0.1 10 ^3/uL (0-0.2); Basophils % (auto) 0.6 % (0.0-2.0); Eosinophils # (auto) 0 10 ^3/uL (0-0.8); Eosinophils % (auto) 0.3 % (0.0-7.0); Hematocrit 38.2 % (41.0-53.0); Hemoglobin 12.2 g/dL (13.5-17.5); Lymphocytes # (auto) 1.2 10 ^3/uL (0.4-5.4); Lymphocytes % (auto) 10.5 % (10.0-50.0); Mean Corpuscular Hemoglobin 28.7 pg (28.0-32.0); Mean Corpuscular Hgb Conc. 31.9 g/dL (32.0-36.0); Mean Corpuscular Volume 89.9 fL (80.0-100.0); Monocytes # (auto) 0.9 10 ^3/uL (0-1.3); Monocytes % (auto) 8.2 % (0.0-12.0); Neutrophils # (auto) 9.2 10 ^3/uL (1.6-8.6); Neutrophils % (auto) 80.4 % (37.0-80.0); Nucleated Red Blood Cells % 0.3 %; Red Blood Cells 4.25 10^6/uL (4.5-5.90); Red Cell Distribution Width 17.3 % (11.8-14.3); White Blood Cell 11.5 10^3/uL (4.4-10.8)
[2024-04-01] MEDS: POTASSIUM CHL 20MEQ/100ML 100 ML IV SCH (03:44)
[2024-04-01 08:19] LABS: Base Excess 1.8 mmol/L (-2.0-2.0)
[2024-04-01] MEDS: Jevity 1.2 Cal/Fiber 1 Liter GT SCH (11:19)
[2024-04-01] MEDS: AMIODARONE 450mg/250ml AE 250 ML IV SCH ×2 (12:58→18:11)
[2024-04-01] MEDS ORDERED: SACU1TAB PO (14:53)
[2024-04-01] MEDS ORDERED: CARV6.2551 PO (14:53)
[2024-04-01] MEDS ORDERED: METO5TAB5 PO (14:53)
[2024-04-01] MEDS ORDERED: DULO20CA PO (14:53)
[2024-04-01] MEDS: ENOXAPARIN SOD 120 MG/0.8 ML SYRINGE SC SCH (16:51)
[2024-04-02] VITALS (109 sets, daily range): BP systolic 80–222; BP diastolic 51–142; PULSE 67–109; RESP 14–35; TEMP 99–101.7; O2SAT 89–100
[2024-04-02 08:23] LABS: Basophils # (auto) 0.1 10 ^3/uL (0-0.2); Basophils % (auto) 0.8 % (0.0-2.0); Eosinophils # (auto) 0.2 10 ^3/uL (0-0.8); Eosinophils % (auto) 1.3 % (0.0-7.0); Hemoglobin 12.8 g/dL (13.5-17.5); Lymphocytes # (auto) 1.8 10 ^3/uL (0.4-5.4); Mean Corpuscular Hgb Conc. 31.2 g/dL (32.0-36.0); Mean Corpuscular Volume 92.9 fL (80.0-100.0); Monocytes # (auto) 2.2 10 ^3/uL (0-1.3); Monocytes % (auto) 12.2 % (0.0-12.0); Neutrophils # (auto) 13.8 10 ^3/uL (1.6-8.6); Neutrophils % (auto) 75.7 % (37.0-80.0); Nucleated Red Blood Cells % 0.3 %; Red Blood Cells 4.41 10^6/uL (4.5-5.90); Red Cell Distribution Width 18.2 % (11.8-14.3); White Blood Cell 18.2 10^3/uL (4.4-10.8)
[2024-04-02 08:42] LABS: Base Excess 3.6 mmol/L (-2.0-2.0)
[2024-04-02 08:43] LABS: Albumin 3.5 g/dL (3.2-4.8); Alkaline Phosphatase 159 U/L (46-116); Anion Gap 8 (5-15); Aspartate Aminotransferase 21 U/L (13-40); BUN/Creatinine Ratio 13.7 (10.0-20.0); Blood Urea Nitrogen 16 mg/dL (9-23); Calcium 8.9 mg/dL (8.5-10.1); Carbon Dioxide 29 mmol/L (20-30); Chloride 110 mmol/L (98-107); Glucose 171 mg/dL (74-106); Magnesium 2.1 mg/dL (1.6-2.6); Potassium 3.5 mmol/L (3.5-5.1); Sodium 147 mmol/L (136-145)
[2024-04-02 08:44] LABS: Bilirubin, Total 1.3 mg/dL (0.2-1.0); Total Protein 5.7 g/dL (5.7-8.2)
[2024-04-02 08:56] LABS: Alanine Aminotransferase < 9 U/L (7-40)
[2024-04-02] MEDS: ACETAMINOPHEN 650 mg PER 20.3 mL UD GT PRN (09:47)
[2024-04-02] MEDS ORDERED: ENOXAPARIN SOD 40 MG/0.4 ML SYRINGE SC SCH (10:00)
[2024-04-02] MEDS ORDERED: VANCOMYCIN PER PHARMACY 0 MG IV SCH (12:00)
[2024-04-02] MEDS: VANCOMYCIN 1GM/200ML 200 ML IV ONE (13:23)
[2024-04-02] MEDS: PANTOPRAZOLE 40 MG/10 ML VIAL INJ IV SCH (13:35)
[2024-04-02] MEDS: MEROPENEM 1GM IVPB 50 ML IV SCH (13:35)
[2024-04-02] MEDS: ACETYLCYSTEINE 10 %(100MG/ML) SOL 4ML NEB SCH (22:17)
[2024-04-03] VITALS (105 sets, daily range): BP systolic 77–113; BP diastolic 54–76; PULSE 66–85; RESP 13–32; TEMP 98.2–101.5; O2SAT 92–100
[2024-04-03 04:25] LABS: Basophils # (auto) 0.1 10 ^3/uL (0-0.2); Basophils % (auto) 0.5 % (0.0-2.0); Eosinophils # (auto) 0.1 10 ^3/uL (0-0.8); Eosinophils % (auto) 0.7 % (0.0-7.0); Hematocrit 36.7 % (41.0-53.0); Hemoglobin 11.7 g/dL (13.5-17.5); Mean Corpuscular Volume 90.7 fL (80.0-100.0); Monocytes # (auto) 0.8 10 ^3/uL (0-1.3); Monocytes % (auto) 7.9 % (0.0-12.0); Neutrophils # (auto) 8.1 10 ^3/uL (1.6-8.6); Neutrophils % (auto) 80.9 % (37.0-80.0); Nucleated Red Blood Cells % 0.2 %; Red Blood Cells 4.05 10^6/uL (4.5-5.90); Red Cell Distribution Width 17.8 % (11.8-14.3); White Blood Cell 10.1 10^3/uL (4.4-10.8)
[2024-04-03 04:33] LABS: Albumin 3.1 g/dL (3.2-4.8); Alkaline Phosphatase 134 U/L (46-116); Anion Gap 6 (5-15); Aspartate Aminotransferase 13 U/L (13-40); BUN/Creatinine Ratio 17.2 (10.0-20.0); Blood Urea Nitrogen 22 mg/dL (9-23); Calcium 9.1 mg/dL (8.7-10.4); Carbon Dioxide 31 mmol/L (20-30); Chloride 110 mmol/L (98-107); Glucose 181 mg/dL (74-106); Potassium 3.3 mmol/L (3.5-5.1); Sodium 147 mmol/L (136-145)
[2024-04-03 04:34] LABS: Bilirubin, Total 1.1 mg/dL (0.2-1.0)
[2024-04-03 04:35] LABS: Total Protein 5.3 g/dL (5.7-8.2)
[2024-04-03 04:38] LABS: Alanine Aminotransferase < 9 U/L (7-40)
[2024-04-03] MEDS: VANCOMYCIN 1GM/200ML 200 ML IV SCH (05:00)
[2024-04-03] MEDS: ALBUTEROL SULF 2.5 MG/0.5ML(0.5%) NEB SOLN NEB SCH (06:13)
[2024-04-03 07:40] LABS: Base Excess 3.6 mmol/L (-2.0-2.0)
[2024-04-03] MEDS ORDERED: LIDOCAINE 2% JELLY 11ml (GLYDO) ONE (11:51)
[2024-04-03] MEDS ORDERED: EPINEPHrine HCL 1 MG/1 ML AMP ONE (11:51)
[2024-04-03] MEDS ORDERED: GLYCOPYRROLATE 0.2 MG/ML 1ML VIAL ONE (11:51)
[2024-04-03] MEDS ORDERED: fentaNYL CITRATE 100 MCG/2 ML VL ONE (11:52)
[2024-04-03] MEDS ORDERED: MIDAZOLAM HCL 5 MG/ML-1ML VIAL ONE (11:52)
[2024-04-03] MEDS ORDERED: FLUMAZENIL 0.1 MG/ML INJ 10ML MDV IV ONE (11:53)
[2024-04-03] MEDS: POTASSIUM EFFERVESENT TAB 25 MEQ GT ONE (15:52)
[2024-04-03] MEDS: POTASSIUM CHL 20MEQ/100ML 100 ML IV ONE (15:52)
[2024-04-04] VITALS (107 sets, daily range): BP systolic 79–171; BP diastolic 52–144; PULSE 70–86; RESP 11–33; TEMP 98.4–100.2; O2SAT 90–100
[2024-04-04 04:17] LABS: Basophils # (auto) 0 10 ^3/uL (0-0.2); Basophils % (auto) 0.4 % (0.0-2.0); Eosinophils # (auto) 0.1 10 ^3/uL (0-0.8); Eosinophils % (auto) 0.5 % (0.0-7.0); Hematocrit 37.5 % (41.0-53.0); Hemoglobin 12.1 g/dL (13.5-17.5); Lymphocytes # (auto) 1.1 10 ^3/uL (0.4-5.4); Lymphocytes % (auto) 10.1 % (10.0-50.0); Mean Corpuscular Hemoglobin 29.2 pg (28.0-32.0); Mean Corpuscular Hgb Conc. 32.3 g/dL (32.0-36.0); Mean Corpuscular Volume 90.3 fL (80.0-100.0); Monocytes # (auto) 0.7 10 ^3/uL (0-1.3); Monocytes % (auto) 6.7 % (0.0-12.0); Neutrophils # (auto) 8.7 10 ^3/uL (1.6-8.6); Neutrophils % (auto) 82.3 % (37.0-80.0); Nucleated Red Blood Cells % 0.1 %; Red Blood Cells 4.15 10^6/uL (4.5-5.90); Red Cell Distribution Width 18.5 % (11.8-14.3); White Blood Cell 10.5 10^3/uL (4.4-10.8)
[2024-04-04 04:33] LABS: Albumin 3.3 g/dL (3.2-4.8); Alkaline Phosphatase 130 U/L (46-116); Anion Gap 7 (5-15); Aspartate Aminotransferase 12 U/L (13-40); Calcium 9.2 mg/dL (8.7-10.4); Carbon Dioxide 30 mmol/L (20-30); Chloride 109 mmol/L (98-107); Glucose 167 mg/dL (74-106); Magnesium 2.1 mg/dL (1.6-2.6); Potassium 4.2 mmol/L (3.5-5.1); Sodium 146 mmol/L (136-145); Total Protein 5.7 g/dL (5.7-8.2)
[2024-04-04 04:38] LABS: Alanine Aminotransferase < 9 U/L (7-40); BUN/Creatinine Ratio 17.9 (10.0-20.0); Blood Urea Nitrogen 25 mg/dL (9-23)
[2024-04-04 08:00] LABS: Base Excess 4.1 mmol/L (-2.0-2.0)
[2024-04-04] MEDS: AMIODARONE HCL 200 MG TAB PO SCH (22:02)
[2024-04-05] VITALS (114 sets, daily range): BP systolic 83–136; BP diastolic 52–93; PULSE 71–113; RESP 10–33; TEMP 97.5–99.5; O2SAT 94–100
[2024-04-05] MEDS: DexmedeTOMIDine 4 ML IV ONE (02:01)
[2024-04-05 11:47] LABS: Basophils # (auto) 0.1 10 ^3/uL (0-0.2); Basophils % (auto) 0.9 % (0.0-2.0); Eosinophils # (auto) 0.3 10 ^3/uL (0-0.8); Eosinophils % (auto) 3.9 % (0.0-7.0); Hematocrit 38.3 % (41.0-53.0); Hemoglobin 12.4 g/dL (13.5-17.5); Lymphocytes # (auto) 1.1 10 ^3/uL (0.4-5.4); Lymphocytes % (auto) 13.5 % (10.0-50.0); Mean Corpuscular Hemoglobin 29.3 pg (28.0-32.0); Mean Corpuscular Hgb Conc. 32.4 g/dL (32.0-36.0); Mean Corpuscular Volume 90.4 fL (80.0-100.0); Monocytes # (auto) 0.7 10 ^3/uL (0-1.3); Monocytes % (auto) 8.4 % (0.0-12.0); Neutrophils % (auto) 73.3 % (37.0-80.0); Nucleated Red Blood Cells % 0.4 %; Red Blood Cells 4.24 10^6/uL (4.5-5.90); Red Cell Distribution Width 18.3 % (11.8-14.3); White Blood Cell 8.2 10^3/uL (4.4-10.8)
[2024-04-05 12:28] LABS: Albumin 3.2 g/dL (3.2-4.8); Alkaline Phosphatase 113 U/L (46-116); Anion Gap 12 (5-15); Aspartate Aminotransferase 28 U/L (13-40); BUN/Creatinine Ratio 23.3 (10.0-20.0); Blood Urea Nitrogen 27 mg/dL (9-23); Calcium 9.3 mg/dL (8.7-10.4); Carbon Dioxide 26 mmol/L (20-30); Chloride 110 mmol/L (98-107); Glucose 122 mg/dL (74-106); Magnesium 2.1 mg/dL (1.6-2.6); Potassium 3.8 mmol/L (3.5-5.1); Sodium 148 mmol/L (136-145)
[2024-04-05 12:29] LABS: Bilirubin, Total 0.9 mg/dL (0.2-1.0); Total Protein 5.7 g/dL (5.7-8.2)
[2024-04-05 12:30] LABS: Alanine Aminotransferase < 9 U/L (7-40)
[2024-04-05] MEDS: NOREPINEPHRINE 8 MG/250ML KIT 250 ML IV SCH (17:42)
[2024-04-06] VITALS (108 sets, daily range): BP systolic 78–145; BP diastolic 50–100; PULSE 71–143; RESP 13–47; TEMP 97.2–100.9; O2SAT 83–100
[2024-04-06 04:22] LABS: Basophils # (auto) 0.1 10 ^3/uL (0-0.2); Basophils % (auto) 0.7 % (0.0-2.0); Eosinophils # (auto) 0.3 10 ^3/uL (0-0.8); Eosinophils % (auto) 4.5 % (0.0-7.0); Hematocrit 38.8 % (41.0-53.0); Hemoglobin 12.4 g/dL (13.5-17.5); Lymphocytes # (auto) 1.1 10 ^3/uL (0.4-5.4); Lymphocytes % (auto) 16.2 % (10.0-50.0); Mean Corpuscular Hemoglobin 28.7 pg (28.0-32.0); Mean Corpuscular Volume 89.5 fL (80.0-100.0); Monocytes # (auto) 0.7 10 ^3/uL (0-1.3); Monocytes % (auto) 9.5 % (0.0-12.0); Neutrophils # (auto) 4.7 10 ^3/uL (1.6-8.6); Neutrophils % (auto) 69.1 % (37.0-80.0); Nucleated Red Blood Cells % 0.2 %; Red Blood Cells 4.34 10^6/uL (4.5-5.90); Red Cell Distribution Width 17.7 % (11.8-14.3); White Blood Cell 6.9 10^3/uL (4.4-10.8)
[2024-04-06 04:48] LABS: Albumin 3.2 g/dL (3.2-4.8); Alkaline Phosphatase 105 U/L (46-116); Anion Gap 15 (5-15); Aspartate Aminotransferase 13 U/L (13-40); BUN/Creatinine Ratio 24.5 (10.0-20.0); Blood Urea Nitrogen 27 mg/dL (9-23); Calcium 9.5 mg/dL (8.7-10.4); Carbon Dioxide 25 mmol/L (20-30); Chloride 111 mmol/L (98-107); Glucose 121 mg/dL (74-106); Sodium 151 mmol/L (136-145)
[2024-04-06 04:49] LABS: Bilirubin, Total 0.9 mg/dL (0.2-1.0); Total Protein 5.7 g/dL (5.7-8.2)
[2024-04-06 04:54] LABS: Alanine Aminotransferase < 9 U/L (7-40)
[2024-04-06] MEDS: POTASSIUM EFFERVESENT TAB 25 MEQ GT ONE (06:10)
[2024-04-06 08:58] LABS: Base Excess 5.2 mmol/L (-2.0-2.0)
[2024-04-06 17:30] LABS: Base Excess 5.7 mmol/L (-2.0-2.0)
[2024-04-06] MEDS: FUROSEMIDE 20 MG/2 ML VIAL IV ONE (21:27)
[2024-04-06] MEDS: POTASSIUM CHL 20MEQ/100ML 100 ML IV ONE ×2 (21:27→21:28)
[2024-04-06] MEDS: FUROSEMIDE 20 MG/2 ML VIAL ONE (21:27)
[2024-04-06 22:08] LABS: Base Excess 5.3 mmol/L (-2.0-2.0)
[2024-04-06] MEDS: ETOMIDATE (2MG/ML) 20ML VIAL IV ONE (22:36)
[2024-04-06] MEDS: SUCCINYLCHOLINE CHLORIDE 20 MG/ML 10ML VIAL IV ONE (22:37)
[2024-04-06] MEDS: MIDODRINE HCL 10 MG TAB PO SCH (22:56)
[2024-04-07] VITALS (108 sets, daily range): BP systolic 87–124; BP diastolic 50–82; PULSE 80–108; RESP 12–30; TEMP 98.1–100.6; O2SAT 93–100
[2024-04-07 00:50] LABS: Base Excess 2.5 mmol/L (-2.0-2.0)
[2024-04-07 04:22] LABS: Basophils # (auto) 0 10 ^3/uL (0-0.2); Basophils % (auto) 0.4 % (0.0-2.0); Eosinophils # (auto) 0.1 10 ^3/uL (0-0.8); Hematocrit 40.4 % (41.0-53.0); Hemoglobin 12.8 g/dL (13.5-17.5); Lymphocytes # (auto) 0.9 10 ^3/uL (0.4-5.4); Lymphocytes % (auto) 8.8 % (10.0-50.0); Mean Corpuscular Hemoglobin 28.6 pg (28.0-32.0); Mean Corpuscular Hgb Conc. 31.8 g/dL (32.0-36.0); Mean Corpuscular Volume 89.9 fL (80.0-100.0); Monocytes # (auto) 0.9 10 ^3/uL (0-1.3); Monocytes % (auto) 8.6 % (0.0-12.0); Neutrophils # (auto) 8.4 10 ^3/uL (1.6-8.6); Neutrophils % (auto) 81.2 % (37.0-80.0); Nucleated Red Blood Cells % 0.2 %; Red Blood Cells 4.49 10^6/uL (4.5-5.90); Red Cell Distribution Width 17.9 % (11.8-14.3); White Blood Cell 10.3 10^3/uL (4.4-10.8)
[2024-04-07 04:42] LABS: Albumin 3.2 g/dL (3.2-4.8); Alkaline Phosphatase 103 U/L (46-116); Anion Gap 10 (5-15); Aspartate Aminotransferase 16 U/L (13-40); Blood Urea Nitrogen 32 mg/dL (9-23); Calcium 9.6 mg/dL (8.7-10.4); Carbon Dioxide 30 mmol/L (20-30); Chloride 112 mmol/L (98-107); Glucose 138 mg/dL (74-106); Potassium 3.6 mmol/L (3.5-5.1); Sodium 152 mmol/L (136-145); Total Protein 5.8 g/dL (5.7-8.2)
[2024-04-07 04:43] LABS: Alanine Aminotransferase < 9 U/L (7-40)
[2024-04-07 07:35] LABS: Base Excess 4.8 mmol/L (-2.0-2.0)
[2024-04-07] MEDS: VANCOMYCIN 1GM/200ML 200 ML IV SCH (10:19)
[2024-04-08] VITALS (108 sets, daily range): BP systolic 82–206; BP diastolic 49–176; PULSE 84–120; RESP 12–19; TEMP 96.6–98.6; O2SAT 93–100
[2024-04-08 04:08] LABS: Basophils # (auto) 0.1 10 ^3/uL (0-0.2); Basophils % (auto) 1.4 % (0.0-2.0); Eosinophils # (auto) 0.3 10 ^3/uL (0-0.8); Eosinophils % (auto) 4.9 % (0.0-7.0); Hematocrit 37.3 % (41.0-53.0); Hemoglobin 12.2 g/dL (13.5-17.5); Lymphocytes # (auto) 1.1 10 ^3/uL (0.4-5.4); Lymphocytes % (auto) 16.1 % (10.0-50.0); Mean Corpuscular Hemoglobin 29.3 pg (28.0-32.0); Mean Corpuscular Hgb Conc. 32.6 g/dL (32.0-36.0); Mean Corpuscular Volume 89.9 fL (80.0-100.0); Monocytes # (auto) 0.6 10 ^3/uL (0-1.3); Monocytes % (auto) 9.3 % (0.0-12.0); Neutrophils # (auto) 4.7 10 ^3/uL (1.6-8.6); Neutrophils % (auto) 68.3 % (37.0-80.0); Nucleated Red Blood Cells % 0.2 %; Red Blood Cells 4.15 10^6/uL (4.5-5.90); Red Cell Distribution Width 18.1 % (11.8-14.3); White Blood Cell 6.9 10^3/uL (4.4-10.8)
[2024-04-08 04:17] LABS: Albumin 3.2 g/dL (3.2-4.8); Alkaline Phosphatase 96 U/L (46-116); Anion Gap 7 (5-15); Aspartate Aminotransferase 16 U/L (13-40); BUN/Creatinine Ratio 28.4 (10.0-20.0); Blood Urea Nitrogen 33 mg/dL (9-23); Calcium 9.5 mg/dL (8.5-10.1); Carbon Dioxide 32 mmol/L (20-30); Chloride 115 mmol/L (98-107); Glucose 146 mg/dL (74-106); Magnesium 2.2 mg/dL (1.6-2.6); Potassium 3.3 mmol/L (3.5-5.1); Sodium 154 mmol/L (136-145); Total Protein 5.6 g/dL (5.7-8.2)
[2024-04-08 04:36] LABS: Alanine Aminotransferase < 9 U/L (7-40)
[2024-04-08] MEDS: POTASSIUM EFFERVESENT TAB 25 MEQ GT ONE (05:48)
[2024-04-08] MEDS: fentaNYL Drip 2500mCg/250mlNS 250 ML IV SCH (20:45)
[2024-04-09] VITALS (102 sets, daily range): BP systolic 74–143; BP diastolic 50–96; PULSE 74–120; RESP 12–28; TEMP 97.5–100.2; O2SAT 91–100
[2024-04-09 04:29] LABS: Basophils # (auto) 0 10 ^3/uL (0-0.2); Basophils % (auto) 0.7 % (0.0-2.0); Eosinophils # (auto) 0.3 10 ^3/uL (0-0.8); Eosinophils % (auto) 4.9 % (0.0-7.0); Hematocrit 36.3 % (41.0-53.0); Hemoglobin 11.4 g/dL (13.5-17.5); Lymphocytes # (auto) 0.8 10 ^3/uL (0.4-5.4); Lymphocytes % (auto) 12.5 % (10.0-50.0); Mean Corpuscular Hemoglobin 28.5 pg (28.0-32.0); Mean Corpuscular Hgb Conc. 31.5 g/dL (32.0-36.0); Mean Corpuscular Volume 90.5 fL (80.0-100.0); Monocytes # (auto) 0.5 10 ^3/uL (0-1.3); Monocytes % (auto) 7.7 % (0.0-12.0); Neutrophils # (auto) 4.6 10 ^3/uL (1.6-8.6); Neutrophils % (auto) 74.2 % (37.0-80.0); Red Blood Cells 4.01 10^6/uL (4.5-5.90); Red Cell Distribution Width 18.3 % (11.8-14.3); White Blood Cell 6.2 10^3/uL (4.4-10.8)
[2024-04-09 04:42] LABS: Alkaline Phosphatase 86 U/L (46-116); Anion Gap 6 (5-15); Aspartate Aminotransferase 16 U/L (13-40); BUN/Creatinine Ratio 27.8 (10.0-20.0); Blood Urea Nitrogen 32 mg/dL (9-23); Calcium 9.2 mg/dL (8.5-10.1); Carbon Dioxide 32 mmol/L (20-30); Chloride 116 mmol/L (98-107); Glucose 129 mg/dL (74-106); Potassium 3.3 mmol/L (3.5-5.1); Sodium 154 mmol/L (136-145)
[2024-04-09 04:43] LABS: Total Protein 5.3 g/dL (5.7-8.2)
[2024-04-09 04:44] LABS: Alanine Aminotransferase < 9 U/L (7-40)
[2024-04-09 09:58] LABS: Base Excess 7.3 mmol/L (-2.0-2.0)
[2024-04-09] MEDS: POTASSIUM CHL 20MEQ/100ML 100 ML IV ONE (10:39)
[2024-04-10] VITALS (106 sets, daily range): BP systolic 99–167; BP diastolic 62–130; PULSE 79–121; RESP 8–31; TEMP 98.6–100.6; O2SAT 94–98
[2024-04-10 03:59] LABS: Basophils # (auto) 0.1 10 ^3/uL (0-0.2); Basophils % (auto) 1.1 % (0.0-2.0); Eosinophils # (auto) 0.1 10 ^3/uL (0-0.8); Hematocrit 41.6 % (41.0-53.0); Hemoglobin 13.4 g/dL (13.5-17.5); Lymphocytes # (auto) 1.3 10 ^3/uL (0.4-5.4); Lymphocytes % (auto) 13.8 % (10.0-50.0); Mean Corpuscular Hemoglobin 28.7 pg (28.0-32.0); Mean Corpuscular Hgb Conc. 32.1 g/dL (32.0-36.0); Mean Corpuscular Volume 89.5 fL (80.0-100.0); Monocytes # (auto) 0.6 10 ^3/uL (0-1.3); Monocytes % (auto) 6.6 % (0.0-12.0); Neutrophils # (auto) 7.1 10 ^3/uL (1.6-8.6); Neutrophils % (auto) 77.5 % (37.0-80.0); Nucleated Red Blood Cells % 0.3 %; Red Blood Cells 4.65 10^6/uL (4.5-5.90); Red Cell Distribution Width 18.8 % (11.8-14.3); White Blood Cell 9.2 10^3/uL (4.4-10.8)
[2024-04-10] MEDS: POTASSIUM CHL 20MEQ/100ML 100 ML IV ONE ×2 (05:35→05:36)
[2024-04-10] MEDS: FUROSEMIDE 40 MG/4 ML VIAL IV SCH (13:00)
[2024-04-10] MEDS: FREE WATER GT SCH (14:00)
[2024-04-11] VITALS (60 sets, daily range): BP systolic 88–129; BP diastolic 62–93; PULSE 83–127; RESP 9–34; TEMP 99–99.9; O2SAT 94–100
[2024-04-11 03:44] LABS: Alanine Aminotransferase 18 U/L (7-40); Alkaline Phosphatase 101 U/L (46-116); Anion Gap 15 (5-15); Aspartate Aminotransferase 41 U/L (13-40); BUN/Creatinine Ratio 25.9 (10.0-20.0); Calcium 10.1 mg/dL (8.7-10.4); Carbon Dioxide 26 mmol/L (20-30); Chloride 113 mmol/L (98-107); Glucose 136 mg/dL (74-106); Potassium 3.8 mmol/L (3.5-5.1); Sodium 154 mmol/L (136-145)
[2024-04-11 03:45] LABS: Albumin 3.4 g/dL (3.2-4.8); Bilirubin, Total 1.5 mg/dL (0.2-1.0)
[2024-04-11 03:53] LABS: Blood Urea Nitrogen 51 mg/dL (9-23)
[2024-04-11 09:18] LABS: Basophils # (auto) 0.1 10 ^3/uL (0-0.2); Basophils % (auto) 1.1 % (0.0-2.0); Eosinophils # (auto) 0.1 10 ^3/uL (0-0.8); Eosinophils % (auto) 0.7 % (0.0-7.0); Hematocrit 43.7 % (41.0-53.0); Hemoglobin 13.6 g/dL (13.5-17.5); Lymphocytes # (auto) 1.1 10 ^3/uL (0.4-5.4); Lymphocytes % (auto) 13.9 % (10.0-50.0); Mean Corpuscular Hemoglobin 28.5 pg (28.0-32.0); Mean Corpuscular Hgb Conc. 31.2 g/dL (32.0-36.0); Mean Corpuscular Volume 91.4 fL (80.0-100.0); Monocytes # (auto) 0.5 10 ^3/uL (0-1.3); Monocytes % (auto) 6.4 % (0.0-12.0); Neutrophils # (auto) 6.3 10 ^3/uL (1.6-8.6); Neutrophils % (auto) 77.9 % (37.0-80.0); Nucleated Red Blood Cells % 0.9 %; Red Blood Cells 4.78 10^6/uL (4.5-5.90); Red Cell Distribution Width 19.7 % (11.8-14.3); White Blood Cell 8.1 10^3/uL (4.4-10.8)
[2024-04-11] MEDS: VANCOMYCIN 1GM/200ML 200 ML IV ONE (10:00)
[2024-04-11] MEDS: PROPOFOL 100 ML IV ONE (23:26)
[2024-04-12] VITALS (99 sets, daily range): BP systolic 78–123; BP diastolic 47–91; PULSE 85–126; RESP 13–49; TEMP 97.7–99.5; O2SAT 93–100
[2024-04-12] MEDS: PROPOFOL 100 ML IV SCH (00:05)
[2024-04-12 07:43] LABS: Base Excess 2.3 mmol/L (-2.0-2.0)
[2024-04-12 10:11] LABS: Alanine Aminotransferase 14 U/L (7-40); Albumin 3.1 g/dL (3.2-4.8); Alkaline Phosphatase 78 U/L (46-116); Anion Gap 12 (5-15); Aspartate Aminotransferase 32 U/L (13-40); BUN/Creatinine Ratio 28.7 (10.0-20.0); Bilirubin, Total 1.2 mg/dL (0.2-1.0); Blood Urea Nitrogen 52 mg/dL (9-23); Calcium 9.3 mg/dL (8.7-10.4); Carbon Dioxide 28 mmol/L (20-30); Chloride 114 mmol/L (98-107); Glucose 104 mg/dL (74-106); Potassium 3.4 mmol/L (3.5-5.1); Sodium 154 mmol/L (136-145); Total Protein 5.4 g/dL (5.7-8.2)
[2024-04-12 11:13] LABS: Basophils # (auto) 0.1 10 ^3/uL (0-0.2); Basophils % (auto) 0.8 % (0.0-2.0); Eosinophils # (auto) 0.1 10 ^3/uL (0-0.8); Eosinophils % (auto) 1.2 % (0.0-7.0); Hemoglobin 11.8 g/dL (13.5-17.5); Lymphocytes # (auto) 0.8 10 ^3/uL (0.4-5.4); Lymphocytes % (auto) 10.2 % (10.0-50.0); Mean Corpuscular Hemoglobin 28.4 pg (28.0-32.0); Mean Corpuscular Hgb Conc. 31.2 g/dL (32.0-36.0); Monocytes # (auto) 0.5 10 ^3/uL (0-1.3); Monocytes % (auto) 6.2 % (0.0-12.0); Neutrophils # (auto) 6.6 10 ^3/uL (1.6-8.6); Neutrophils % (auto) 81.6 % (37.0-80.0); Nucleated Red Blood Cells % 0.5 %; Red Blood Cells 4.18 10^6/uL (4.5-5.90); Red Cell Distribution Width 19.1 % (11.8-14.3); White Blood Cell 8.1 10^3/uL (4.4-10.8)
[2024-04-12] MEDS: POTASSIUM CHL 20MEQ/100ML 100 ML IV ONE (12:23)
[2024-04-12] MEDS: MEROPENEM 1GM IVPB 50 ML IV SCH (14:08)
[2024-04-12 14:22] LABS: Base Excess 3.6 mmol/L (-2.0-2.0)
[2024-04-12] MEDS: LORazepam 2MG/ML-1ML VIAL ONE (16:18)
[2024-04-12] MEDS: LORazepam 2MG/ML-1ML VIAL IV ONE (16:36)
[2024-04-12] MEDS: FREE WATER GT SCH (20:30)
[2024-04-13] VITALS (105 sets, daily range): BP systolic 89–130; BP diastolic 59–88; PULSE 85–135; RESP 15–47; TEMP 97.5–99; O2SAT 92–99
[2024-04-13 04:07] LABS: Basophils # (auto) 0.1 10 ^3/uL (0-0.2); Basophils % (auto) 0.8 % (0.0-2.0); Eosinophils # (auto) 0.1 10 ^3/uL (0-0.8); Eosinophils % (auto) 1.4 % (0.0-7.0); Hematocrit 37.5 % (41.0-53.0); Hemoglobin 12.2 g/dL (13.5-17.5); Lymphocytes # (auto) 1.1 10 ^3/uL (0.4-5.4); Mean Corpuscular Hemoglobin 28.8 pg (28.0-32.0); Mean Corpuscular Hgb Conc. 32.5 g/dL (32.0-36.0); Mean Corpuscular Volume 88.8 fL (80.0-100.0); Monocytes # (auto) 0.5 10 ^3/uL (0-1.3); Monocytes % (auto) 6.9 % (0.0-12.0); Neutrophils # (auto) 5.9 10 ^3/uL (1.6-8.6); Neutrophils % (auto) 76.9 % (37.0-80.0); Red Blood Cells 4.23 10^6/uL (4.5-5.90); Red Cell Distribution Width 18.6 % (11.8-14.3); White Blood Cell 7.7 10^3/uL (4.4-10.8)
[2024-04-13 04:27] LABS: Alanine Aminotransferase 16 U/L (7-40); Albumin 3.2 g/dL (3.2-4.8); Alkaline Phosphatase 84 U/L (46-116); Anion Gap 14 (5-15); Aspartate Aminotransferase 30 U/L (13-40); BUN/Creatinine Ratio 25.7 (10.0-20.0); Bilirubin, Total 1.6 mg/dL (0.2-1.0); Blood Urea Nitrogen 49 mg/dL (9-23); Calcium 9.8 mg/dL (8.7-10.4); Carbon Dioxide 27 mmol/L (20-30); Chloride 113 mmol/L (98-107); Glucose 118 mg/dL (74-106); Potassium 3.3 mmol/L (3.5-5.1); Sodium 154 mmol/L (136-145)
[2024-04-13 04:28] LABS: Total Protein 5.9 g/dL (5.7-8.2)
[2024-04-13] MEDS: LORazepam 2MG/ML-1ML VIAL IV PRN (05:13)
[2024-04-13 07:58] LABS: Base Excess 3.5 mmol/L (-2.0-2.0)
[2024-04-13 09:36] LABS: Protein, Urine 109.1 mg/dL (0.0-11.9)
[2024-04-13 09:40] LABS: Creatinine, Urine 145.08 mg/dL (30.0-125.0)
[2024-04-13] MEDS: VANCOMYCIN 500 MG in D5W 5% 100 ML IV ONE (10:00)
[2024-04-13] MEDS: D5W 5% 1,000 ML IV SCH (13:06)
[2024-04-13] MEDS: POTASSIUM CHL 20MEQ/100ML 100 ML IV SCH (13:08)
[2024-04-13] MEDS: DOBUTamine 1000MCG/ML 250 ML IV ONE (13:16)
[2024-04-13] MEDS: DOBUTamine 1000MCG/ML 250 ML IV SCH (13:16)
[2024-04-13] MEDS: LORazepam 2MG/ML-1ML VIAL IV ONE (15:24)
[2024-04-13] MEDS: LORazepam 2MG/ML-1ML VIAL ONE (15:27)
[2024-04-13] MEDS ORDERED: TPN PER PHARMACY 0 ML IV SCH (17:00)
[2024-04-13] MEDS ORDERED: DEXTROSE (50%) 50ML SYRG IV SCH (17:45)
[2024-04-13] MEDS: InsuLIN REG 1unit/0.01ml Soln (100units/ml) SC SCH (18:00)
[2024-04-13] MEDS: ACCU-CHEK COMFORT CURVE STRIP VI SCH (18:00)
[2024-04-13] MEDS ORDERED: MILRINONE 20MG/100ML 100 ML IV SCH (18:15)
[2024-04-13 18:35] LABS: Magnesium 2.4 mg/dL (1.6-2.6)
[2024-04-13] MEDS: MILRINONE 20MG/100ML 100 ML IV SCH (18:48)
[2024-04-13] MEDS: AMINO ACID INFUSION IN D10W 1,000 ML IV ONE (20:36)
[2024-04-13] MEDS: DIGOXIN (250MCG/ML) 2 ML AMPULE IV ONE (20:36)
[2024-04-13] MEDS: methylPREDNISolone SOD SUCC 125 MG/2 ML VL IV SCH (22:15)
[2024-04-14] VITALS (100 sets, daily range): BP systolic 85–163; BP diastolic 39–128; PULSE 100–138; RESP 15–45; TEMP 97.5–98.6; O2SAT 92–99
[2024-04-14 04:56] LABS: Basophils # (auto) 0 10 ^3/uL (0-0.2); Basophils % (auto) 0.2 % (0.0-2.0); Eosinophils # (auto) 0 10 ^3/uL (0-0.8); Eosinophils % (auto) 0.4 % (0.0-7.0); Hematocrit 33.7 % (41.0-53.0); Hemoglobin 10.9 g/dL (13.5-17.5); Lymphocytes # (auto) 0.2 10 ^3/uL (0.4-5.4); Lymphocytes % (auto) 3.5 % (10.0-50.0); Mean Corpuscular Hemoglobin 29.2 pg (28.0-32.0); Mean Corpuscular Hgb Conc. 32.5 g/dL (32.0-36.0); Monocytes # (auto) 0.1 10 ^3/uL (0-1.3); Neutrophils # (auto) 6.3 10 ^3/uL (1.6-8.6); Neutrophils % (auto) 93.9 % (37.0-80.0); Nucleated Red Blood Cells % 0.2 %; Red Blood Cells 3.75 10^6/uL (4.5-5.90); Red Cell Distribution Width 19.2 % (11.8-14.3); White Blood Cell 6.8 10^3/uL (4.4-10.8)
[2024-04-14 04:59] LABS: Alanine Aminotransferase 14 U/L (7-40); Albumin 3.1 g/dL (3.2-4.8); Alkaline Phosphatase 74 U/L (46-116); Anion Gap 9 (5-15); Aspartate Aminotransferase 26 U/L (13-40); BUN/Creatinine Ratio 30.4 (10.0-20.0); Blood Urea Nitrogen 45 mg/dL (9-23); Calcium 8.9 mg/dL (8.7-10.4); Carbon Dioxide 28 mmol/L (20-30); Chloride 112 mmol/L (98-107); Magnesium 2.1 mg/dL (1.6-2.6); Potassium 3.3 mmol/L (3.5-5.1)
[2024-04-14 05:00] LABS: Bilirubin, Total 1.8 mg/dL (0.2-1.0); Phosphorus 2.1 mg/dL (2.4-5.1); Total Protein 5.5 g/dL (5.7-8.2)
[2024-04-14 05:05] LABS: Glucose 244 mg/dL (74-106); Sodium 149 mmol/L (136-145)
[2024-04-14 05:15] LABS: Triglycerides 156 mg/dL (< 150)
[2024-04-14 09:17] LABS: Hematocrit 34.2 % (41.0-53.0); Mean Corpuscular Hemoglobin 28.8 pg (28.0-32.0); Mean Corpuscular Hgb Conc. 32.2 g/dL (32.0-36.0); Mean Corpuscular Volume 89.4 fL (80.0-100.0); Red Blood Cells 3.82 10^6/uL (4.5-5.90); White Blood Cell 5.7 10^3/uL (4.4-10.8)
[2024-04-14] MEDS: BUMETANIDE 2.5mg/10ml (0.25 mg/ml) INJ IV ONE (09:29)
[2024-04-14] MEDS: DIGOXIN (250MCG/ML) 2 ML AMPULE IV ONE (09:30)
[2024-04-14 09:35] LABS: Band Neutrophils % (manual) 0; Basophils % (manual) 0 (0.0-2.0); Blast Cells 0; Eosinophils % (manual) 0 (0-7); Metamyelocytes % 0; Myelocytes % 0; Promyelocytes % 0; Reactive Lymphocytes 0
[2024-04-14 09:41] LABS: INR 1.41 (0.9-1.15); Partial Thromboplastin Time 28.6 SEC (24.5-34.5); Prothrombin Time 14.6 sec (9.3-11.8)
[2024-04-14] MEDS: HEPARIN DRIP/D5W 100UNITS/ML 250 ML IV SCH ×2 (09:48→18:53)
[2024-04-14] MEDS: HEPARIN SODIUM (PORCINE) 5000 UNITS/ML 1ML VIAL IV ONE ×2 (09:50→18:57)
[2024-04-14] MEDS: ASPirin 81 mg TAB PO SCH (09:55)
[2024-04-14 10:02] LABS: Lymphocytes % (manual) 3 (10.0-50.0); Monocytes % (manual) 2 (0-12); Platelet Estimate Adequate
[2024-04-14] MEDS: POTASSIUM CHL 20MEQ/100ML 100 ML IV SCH (10:02)
[2024-04-14] MEDS ORDERED: POTASSIUM CHL 20MEQ/100ML 100 ML IV ONE (10:15)
[2024-04-14] MEDS: POTASSIUM PHOSPHATE 22 MEQ in SODIUM CHL 0.9% 100 ML IV ONE (12:09)
[2024-04-14] MEDS: D5W 5% 1,000 ML IV SCH ×2 (15:15→17:00)
[2024-04-14 17:15] LABS: INR 1.37 (0.9-1.15); Partial Thromboplastin Time 26.1 SEC (24.5-34.5); Prothrombin Time 14.2 sec (9.3-11.8)
[2024-04-14] MEDS: TPN PER PHARMACY IV NR (20:47)
[2024-04-14 21:16] LABS: Body Fluid Polymorphonuclear 8 % (0-25); Body Fluid Red Blood Cells 5700 CUMM (0-2000); Body Fluid White Blood Cells 1350 CUMM (0-200)
[2024-04-15] VITALS (72 sets, daily range): BP systolic 84–150; BP diastolic 59–93; PULSE 96–133; RESP 13–40; TEMP 97.5–98.8; O2SAT 92–99
[2024-04-15 01:05] LABS: Base Excess 2.5 mmol/L (-2.0-2.0)
[2024-04-15 01:09] LABS: INR 1.4 (0.9-1.15); Prothrombin Time 14.5 sec (9.3-11.8)
[2024-04-15] MEDS: HALOPERIDOL LACTATE 5 MG/ML INJ VIAL IM ONE (01:20)
[2024-04-15] MEDS: HEPARIN SODIUM (PORCINE) 5000 UNITS/ML 1ML VIAL IV ONE ×4 (02:11→23:59)
[2024-04-15] MEDS: HEPARIN SODIUM (PORCINE) 5000 UNITS/ML 1ML VIAL ONE (02:12)
[2024-04-15] MEDS: METOPROLOL TARTRATE 1MG/1ML-5ML VIAL IV ONE (02:12)
[2024-04-15] MEDS ORDERED: METOPROLOL TARTRATE 1MG/1ML-5ML VIAL IV PRN (02:15)
[2024-04-15 03:53] LABS: Basophils # (auto) 0 10 ^3/uL (0-0.2); Basophils % (auto) 0.2 % (0.0-2.0); Eosinophils # (auto) 0 10 ^3/uL (0-0.8); Hematocrit 34.9 % (41.0-53.0); Hemoglobin 11.3 g/dL (13.5-17.5); Lymphocytes # (auto) 0.3 10 ^3/uL (0.4-5.4); Lymphocytes % (auto) 3.2 % (10.0-50.0); Mean Corpuscular Hemoglobin 28.9 pg (28.0-32.0); Mean Corpuscular Hgb Conc. 32.2 g/dL (32.0-36.0); Mean Corpuscular Volume 89.6 fL (80.0-100.0); Monocytes # (auto) 0.3 10 ^3/uL (0-1.3); Monocytes % (auto) 3.5 % (0.0-12.0); Neutrophils # (auto) 8.7 10 ^3/uL (1.6-8.6); Neutrophils % (auto) 93.1 % (37.0-80.0); Nucleated Red Blood Cells % 0.4 %; Red Cell Distribution Width 19.1 % (11.8-14.3); White Blood Cell 9.3 10^3/uL (4.4-10.8)
[2024-04-15] MEDS: AMIODARONE 450mg/250ml AE 250 ML IV SCH ×2 (04:01→09:58)
[2024-04-15 04:10] LABS: Alanine Aminotransferase 14 U/L (7-40); Albumin 3.4 g/dL (3.2-4.8); Alkaline Phosphatase 77 U/L (46-116); Anion Gap 11 (5-15); Aspartate Aminotransferase 21 U/L (13-40); BUN/Creatinine Ratio 28.3 (10.0-20.0); Blood Urea Nitrogen 41 mg/dL (9-23); Carbon Dioxide 24 mmol/L (20-30); Chloride 110 mmol/L (98-107); Glucose 250 mg/dL (74-106); Magnesium 1.9 mg/dL (1.6-2.6); Sodium 145 mmol/L (136-145)
[2024-04-15 04:11] LABS: Bilirubin, Total 1.6 mg/dL (0.2-1.0); Phosphorus 2.8 mg/dL (2.4-5.1); Total Protein 5.9 g/dL (5.7-8.2)
[2024-04-15] MEDS: AMIODARONE 450mg/250ml AE 250 ML IV ONE (05:07)
[2024-04-15] MEDS: POTASSIUM CHL 20MEQ/100ML 200 ML IV ONE (05:41)
[2024-04-15] MEDS: POTASSIUM CHL 20MEQ/100ML 100 ML IV SCH (05:41)
[2024-04-15] MEDS: FUROSEMIDE 40 MG/4 ML VIAL IV ONE (06:12)
[2024-04-15] MEDS: LEVALBUTEROL HCL 1.25 MG/3 ML NEB NEB SCH (07:10)
[2024-04-15] MEDS: IPRATROPIUM BROM 0.5 MG/2.5ML INH SOL NEB SCH (07:10)
[2024-04-15 07:26] LABS: Base Excess 2.8 mmol/L (-2.0-2.0)
[2024-04-15 09:02] LABS: INR 1.4 (0.9-1.15); Partial Thromboplastin Time 27.9 SEC (24.5-34.5); Prothrombin Time 14.5 sec (9.3-11.8)
[2024-04-15] MEDS: HEPARIN DRIP/D5W 100UNITS/ML 250 ML IV SCH ×2 (09:30→18:41)
[2024-04-15] MEDS: methylPREDNISolone SOD SUCC 125 MG/2 ML VL IV ONE (14:00)
[2024-04-15 17:01] LABS: INR 1.34 (0.9-1.15); Partial Thromboplastin Time 27.6 SEC (24.5-34.5); Prothrombin Time 13.9 sec (9.3-11.8)
[2024-04-15] MEDS: MAGNESIUM SULFATE 1GM/100ML 100 ML IV SCH (18:43)
[2024-04-15] MEDS: LORazepam 2MG/ML-1ML VIAL IV SCH (18:44)
[2024-04-15] MEDS: TPN PER PHARMACY IV NR (20:20)
[2024-04-15] MEDS: methylPREDNISolone SOD SUCC 125 MG/2 ML VL IV SCH (22:07)
[2024-04-15 22:38] LABS: INR 1.25 (0.9-1.15); Partial Thromboplastin Time 28.3 SEC (24.5-34.5)
[2024-04-16] VITALS (117 sets, daily range): BP systolic 93–139; BP diastolic 48–98; PULSE 87–133; RESP 19–49; TEMP 97.5–98.8; O2SAT 90–98
[2024-04-16 04:06] LABS: Basophils # (auto) 0 10 ^3/uL (0-0.2); Eosinophils # (auto) 0 10 ^3/uL (0-0.8); Hematocrit 32.7 % (41.0-53.0); Hemoglobin 10.6 g/dL (13.5-17.5); Lymphocytes # (auto) 0.2 10 ^3/uL (0.4-5.4); Lymphocytes % (auto) 1.7 % (10.0-50.0); Mean Corpuscular Hemoglobin 28.8 pg (28.0-32.0); Mean Corpuscular Hgb Conc. 32.4 g/dL (32.0-36.0); Mean Corpuscular Volume 88.8 fL (80.0-100.0); Monocytes # (auto) 0.5 10 ^3/uL (0-1.3); Monocytes % (auto) 3.9 % (0.0-12.0); Neutrophils # (auto) 11.9 10 ^3/uL (1.6-8.6); Neutrophils % (auto) 94.4 % (37.0-80.0); Nucleated Red Blood Cells % 0.1 %; Red Blood Cells 3.68 10^6/uL (4.5-5.90); Red Cell Distribution Width 19.1 % (11.8-14.3); White Blood Cell 12.6 10^3/uL (4.4-10.8)
[2024-04-16 04:16] LABS: Alanine Aminotransferase 15 U/L (7-40); Albumin 3.2 g/dL (3.2-4.8); Alkaline Phosphatase 74 U/L (46-116); Anion Gap 13 (5-15); Aspartate Aminotransferase 18 U/L (13-40); BUN/Creatinine Ratio 29.5 (10.0-20.0); Blood Urea Nitrogen 41 mg/dL (9-23); Calcium 9.2 mg/dL (8.7-10.4); Carbon Dioxide 24 mmol/L (20-30); Chloride 106 mmol/L (98-107); Glucose 328 mg/dL (74-106); Magnesium 2.4 mg/dL (1.6-2.6); Phosphorus 2.9 mg/dL (2.4-5.1); Potassium 2.9 mmol/L (3.5-5.1); Sodium 143 mmol/L (136-145)
[2024-04-16 04:17] LABS: Bilirubin, Total 1.5 mg/dL (0.2-1.0); Total Protein 5.8 g/dL (5.7-8.2)
[2024-04-16 06:54] LABS: INR 1.24 (0.9-1.15); Partial Thromboplastin Time 26.8 SEC (24.5-34.5); Prothrombin Time 12.9 sec (9.3-11.8)
[2024-04-16] MEDS: POTASSIUM CHL 20MEQ/100ML 100 ML IV SCH (08:30)
[2024-04-16] MEDS ORDERED: HEPARIN DRIP/D5W 100UNITS/ML 250 ML IV SCH (09:30)
[2024-04-16] MEDS: HEPARIN SODIUM (PORCINE) 5000 UNITS/ML 1ML VIAL IV ONE (09:30)
[2024-04-16] MEDS: HEPARIN DRIP/D5W 100UNITS/ML 250 ML IV SCH ×2 (13:15)
[2024-04-16 14:07] LABS: Albumin, Body Fluid 1.1 g/dL (Not Estab.); Protein, Body Fluid 1.6 g/dL (.)
[2024-04-16] MEDS: POTASSIUM CHL 20MEQ/100ML 100 ML IV ONE (15:20)
[2024-04-16] MEDS: BUMETANIDE 2.5mg/10ml (0.25 mg/ml) INJ IV ONE (16:19)
[2024-04-16] MEDS: TPN PER PHARMACY IV NR (20:47)
[2024-04-16] MEDS: ENOXAPARIN SOD 100 MG/1 ML SYRINGE SC SCH (20:48)
[2024-04-17] VITALS (117 sets, daily range): BP systolic 82–140; BP diastolic 20–92; PULSE 84–132; RESP 14–46; TEMP 98.4–99.5; O2SAT 86–100
[2024-04-17 03:49] LABS: Basophils # (auto) 0.1 10 ^3/uL (0-0.2); Basophils % (auto) 0.4 % (0.0-2.0); Eosinophils # (auto) 0.1 10 ^3/uL (0-0.8); Eosinophils % (auto) 0.7 % (0.0-7.0); Hematocrit 33.2 % (41.0-53.0); Hemoglobin 10.6 g/dL (13.5-17.5); Lymphocytes # (auto) 0.3 10 ^3/uL (0.4-5.4); Lymphocytes % (auto) 2.2 % (10.0-50.0); Mean Corpuscular Hemoglobin 28.2 pg (28.0-32.0); Mean Corpuscular Hgb Conc. 31.9 g/dL (32.0-36.0); Mean Corpuscular Volume 88.4 fL (80.0-100.0); Monocytes # (auto) 0.5 10 ^3/uL (0-1.3); Monocytes % (auto) 3.8 % (0.0-12.0); Neutrophils # (auto) 12.1 10 ^3/uL (1.6-8.6); Neutrophils % (auto) 92.9 % (37.0-80.0); Nucleated Red Blood Cells % 0.4 %; Red Blood Cells 3.75 10^6/uL (4.5-5.90); Red Cell Distribution Width 19.3 % (11.8-14.3)
[2024-04-17 04:06] LABS: Albumin 3.3 g/dL (3.2-4.8); Alkaline Phosphatase 75 U/L (46-116); Anion Gap 9 (5-15); Aspartate Aminotransferase 52 U/L (13-40); Calcium 9.1 mg/dL (8.7-10.4); Carbon Dioxide 24 mmol/L (20-30); Chloride 108 mmol/L (98-107); Glucose 243 mg/dL (74-106); Magnesium 2.4 mg/dL (1.6-2.6); Phosphorus 3.4 mg/dL (2.4-5.1); Sodium 141 mmol/L (136-145)
[2024-04-17 04:07] LABS: Bilirubin, Total 1.7 mg/dL (0.2-1.0); Total Protein 5.6 g/dL (5.7-8.2)
[2024-04-17 04:10] LABS: Alanine Aminotransferase 21 U/L (7-40); BUN/Creatinine Ratio 29.7 (10.0-20.0); Blood Urea Nitrogen 43 mg/dL (9-23); Potassium 4.3 mmol/L (3.5-5.1)
[2024-04-17] MEDS: FUROSEMIDE 40 MG/4 ML VIAL IV SCH (10:25)
[2024-04-17] MEDS ORDERED: ACETYLCYSTEINE 10 %(100MG/ML) SOL 4ML IN SCH (14:00)
[2024-04-17] MEDS: TPN PER PHARMACY IV NR (20:38)
[2024-04-17] MEDS ORDERED: NOREPINEPHRINE 8 MG/250ML KIT 250 ML IV SCH (21:45)
[2024-04-17] MEDS: ACETYLCYSTEINE 20%(200MG/ML) SOL 4ML IN SCH (22:01)
[2024-04-18] VITALS (91 sets, daily range): BP systolic 73–138; BP diastolic 24–94; PULSE 70–121; RESP 15–47; TEMP 97.9–99.7; O2SAT 81–99
[2024-04-18 04:11] LABS: Basophils # (auto) 0 10 ^3/uL (0-0.2); Basophils % (auto) 0.1 % (0.0-2.0); Eosinophils # (auto) 0 10 ^3/uL (0-0.8); Hemoglobin 10.5 g/dL (13.5-17.5); Lymphocytes # (auto) 0.2 10 ^3/uL (0.4-5.4); Lymphocytes % (auto) 1.4 % (10.0-50.0); Mean Corpuscular Hgb Conc. 32.8 g/dL (32.0-36.0); Mean Corpuscular Volume 88.2 fL (80.0-100.0); Monocytes # (auto) 0.7 10 ^3/uL (0-1.3); Monocytes % (auto) 4.7 % (0.0-12.0); Neutrophils # (auto) 13.1 10 ^3/uL (1.6-8.6); Neutrophils % (auto) 93.8 % (37.0-80.0); Nucleated Red Blood Cells % 1.2 %; Red Blood Cells 3.62 10^6/uL (4.5-5.90); Red Cell Distribution Width 19.5 % (11.8-14.3)
[2024-04-18 04:33] LABS: Alanine Aminotransferase 23 U/L (7-40); Alkaline Phosphatase 91 U/L (46-116); Anion Gap 10 (5-15); Aspartate Aminotransferase 26 U/L (13-40); BUN/Creatinine Ratio 31.6 (10.0-20.0); Blood Urea Nitrogen 50 mg/dL (9-23); Carbon Dioxide 23 mmol/L (20-30); Chloride 108 mmol/L (98-107); Glucose 218 mg/dL (74-106); Magnesium 2.5 mg/dL (1.6-2.6); Potassium 3.7 mmol/L (3.5-5.1); Sodium 141 mmol/L (136-145)
[2024-04-18 04:34] LABS: Albumin 3.3 g/dL (3.2-4.8)
[2024-04-18 04:35] LABS: Bilirubin, Total 2.2 mg/dL (0.2-1.0); Phosphorus 4.3 mg/dL (2.4-5.1); Total Protein 5.7 g/dL (5.7-8.2)
[2024-04-18] MEDS: MORPHINE SULFATE INJ 2 MG/ml SYRG ONE (08:55)
[2024-04-18] MEDS: MORPHINE SULFATE INJ 2 MG/ml SYRG IV PRN ×2 (09:27→20:01)
[2024-04-18] MEDS ORDERED: POTASSIUM CHL 20MEQ/100ML 100 ML IV ONE (15:45)
[2024-04-18] MEDS: LORazepam 2MG/ML-1ML VIAL IV SCH (17:45)
[2024-04-18] MEDS ORDERED: TPN PER PHARMACY IV NR (20:00)
[2024-04-18] MEDS: LORazepam 2MG/ML-1ML VIAL IV ONE (23:10)
[2024-04-18] MEDS: LORazepam 2MG/ML-1ML VIAL ONE (23:19)
[2024-04-19] VITALS (18 sets, daily range): BP systolic 86–100; BP diastolic 56–67; PULSE 70–77; RESP 18–32; TEMP 98.1–98.2; O2SAT 72–94
[2024-04-19] MEDS: GLYCOPYRROLATE 0.2 MG/ML 1ML VIAL IV SCH (14:00)
[2024-04-19] MEDS: HYDROmorphone HCL 2 MG/ML VL/or syr IV ONE (14:15)
[2024-04-19] MEDS: HYDROmorphone HCL 2 MG/ML VL/or syr IV PRN (16:30)
[2024-04-20 00:03] VITALS: BP 44/30; PULSE 65; RESP 10
== END 2024-04-20 00:21 | DRG 207 ==
LOC: EDBD 13:39 → ER 13:39 → OVERFLOW 17:41 → ICU WEST 03-31 05:55
PROVIDERS: ADMIT Internal Medicine; ATTEND Internal Medicine
PROC: 0BH17EZ Insertion of Endotracheal Airway into Trachea, Via Natural or Artificial Opening (ICD-10-PCS; principal; 2024-03-30)
PROC: 5A1955Z Respiratory Ventilation, Greater than 96 Consecutive Hours (ICD-10-PCS; 2024-03-30)
PROC: 02HV33Z Insertion of Infusion Device into Superior Vena Cava, Percutaneous Approach (ICD-10-PCS; 2024-03-30)
PROC: 4B02XSZ Measurement of Cardiac Pacemaker, External Approach (ICD-10-PCS; 2024-04-01)
PROC: 0B918ZZ Drainage of Trachea, Via Natural or Artificial Opening Endoscopic (ICD-10-PCS; 2024-04-03)
PROC: 5A09357 Assistance with Respiratory Ventilation, Less than 24 Consecutive Hours, Continuous Positive Airway Pressure (ICD-10-PCS; 2024-04-06)
PROC: 5A1935Z Respiratory Ventilation, Less than 24 Consecutive Hours (ICD-10-PCS; 2024-04-06)
PROC: 0BH17EZ Insertion of Endotracheal Airway into Trachea, Via Natural or Artificial Opening (ICD-10-PCS; 2024-04-07)
PROC: 5A1955Z Respiratory Ventilation, Greater than 96 Consecutive Hours (ICD-10-PCS; 2024-04-07)
PROC: 0B9H8ZX Drainage of Lung Lingula, Via Natural or Artificial Opening Endoscopic, Diagnostic (ICD-10-PCS; 2024-04-07)
PROC: 5A09357 Assistance with Respiratory Ventilation, Less than 24 Consecutive Hours, Continuous Positive Airway Pressure (ICD-10-PCS; 2024-04-12)
PROC: 5A09357 Assistance with Respiratory Ventilation, Less than 24 Consecutive Hours, Continuous Positive Airway Pressure (ICD-10-PCS; 2024-04-13)
PROC: 0W9B3ZZ Drainage of Left Pleural Cavity, Percutaneous Approach (ICD-10-PCS; 2024-04-14)
PROC: 5A09357 Assistance with Respiratory Ventilation, Less than 24 Consecutive Hours, Continuous Positive Airway Pressure (ICD-10-PCS; 2024-04-14)
PROC: 5A09357 Assistance with Respiratory Ventilation, Less than 24 Consecutive Hours, Continuous Positive Airway Pressure (ICD-10-PCS; 2024-04-15)
PROC: 5A09457 Assistance with Respiratory Ventilation, 24-96 Consecutive Hours, Continuous Positive Airway Pressure (ICD-10-PCS; 2024-04-16)
PROC: 5A09357 Assistance with Respiratory Ventilation, Less than 24 Consecutive Hours, Continuous Positive Airway Pressure (ICD-10-PCS; 2024-04-16)
DX: J80 Acute respiratory distress syndrome (principal); G93.41 Metabolic encephalopathy; I50.23 Acute on chronic systolic (congestive) heart failure; I13.0 Hypertensive heart and chronic kidney disease with heart failure and stage 1 through stage 4 chronic kidney disease, or unspecified chronic kidney disease; J98.11 Atelectasis; I48.20 Chronic atrial fibrillation, unspecified; E87.3 Alkalosis; N17.9 Acute kidney failure, unspecified; E87.0 Hyperosmolality and hypernatremia; R57.9 Shock, unspecified; Z66 Do not resuscitate; E66.01 Morbid (severe) obesity due to excess calories; I25.5 Ischemic cardiomyopathy; E87.6 Hypokalemia; E11.22 Type 2 diabetes mellitus with diabetic chronic kidney disease; E03.9 Hypothyroidism, unspecified; N20.0 Calculus of kidney; I25.10 Atherosclerotic heart disease of native coronary artery without angina pectoris; N18.9 Chronic kidney disease, unspecified; E11.65 Type 2 diabetes mellitus with hyperglycemia; F41.9 Anxiety disorder, unspecified; Z98.61 Coronary angioplasty status; Z68.34 Body mass index [BMI] 34.0-34.9, adult; I25.2 Old myocardial infarction; Z95.810 Presence of automatic (implantable) cardiac defibrillator; Z79.899 Other long term (current) drug therapy; Z79.84 Long term (current) use of oral hypoglycemic drugs; Z79.02 Long term (current) use of antithrombotics/antiplatelets; Z79.01 Long term (current) use of anticoagulants; Z79.4 Long term (current) use of insulin
CPT/HCPCS: 31500; 31720; 36415; 36556; 36600; 71045; 71250; 76775; 80053; 80202; 82565; 82570; 82805; 82962; 83615; 83735; 83880; 83930; 83935; 83986; 84100; 84156; 84300; 84478; 84484; 85007; 85025; 85027; 85379; 85610; 85730; 87040; 87070; 87081; 87086; 87205; 89051; 93005; 93306; 94002; 94003; 94640; 94660; 99291; G0378; J0171; J0330; J1815; J2185; J2250; J2470; J2704; J3480; J7042; J7060